=== PATIENT | male | born 1965 | race Caucasian/White ===

== ENCOUNTER 2018-07-11 14:40 | Outpatient (CLI) | payer BC ==
[~2018-07-11] VITALS: Ht 172.7 cm; Wt 90.7 kg
[~2018-07-11 14:40] MED LIST: BENA40TA5 PO; OMEP20TA7 PO; SIMV20TA3 PO; insulin pump
== END 2018-07-11 14:56 ==
LOC: PREOP 14:40
PROVIDERS: ATTEND Surgery
DX: Z01.818 Encounter for other preprocedural examination (principal)

== ENCOUNTER 2018-07-27 10:55 | Day surgery (SDC) | payer BC ==
[~2018-07-27] VITALS: Ht 172.7 cm; Wt 90.7 kg
--- OUTSIDE RECORDS SUMMARY | 2018-07-27 10:58 | XMS REPORT | Clinical Summary ---
Author Author [facility] Organization [facility] Address Unknown Phone Unavailable Care Team Providers Care Production Sampler Name Role Phone Eva Olvera MD PCP Source Comments Some departments are not documenting in the electronic medical record. If you do not see the information that you expected, contact Release of Information in the Health Information Management department at [phone] for further assistance in locating additional records.[facility] Allergies Not on File Medications Not on file Active Problems Not on file Social History Date Tobacco Use Types Packs/Day Years Used Never Assessed Sex Assigned at Date Recorded Not on file Industry Job Start Date Occupation Not on file Not on file Not on file Travel End Travel History Travel Start No recent travel history available. Last Filed Vital Signs Not on file Plan of Treatment Health Maintenance Due Date Last Done Comments HEPATITIS C SCREENING 1963 PHYSICAL (COMPREHENSIVE) 1970 EXAM HIV SCREENING 1978 DTAP/TDAP VACCINES (1 - 1981 Tdap) COLORECTAL CANCER 2013 SCREENING SHINGLES RECOMBINANT 2013 VACCINE (1 of 2) INFLUENZA VACCINE 02/21/2018 Results Not on filefrom Last 3 Months Insurance Payer Benefit Subscriber ID Type Phone Address Plan / Group [employer] [facility] xxxxxxxxxxxx PPO PREF CARE BLUE Advance Directives Patient has advance care planning documents on file. For more information, please contact: [facility] [address] [place] [address]
--- OUTSIDE RECORDS SUMMARY | 2018-07-27 10:59 | XMS REPORT | Continuity of Care Document ---
Author Author [facility] Organization [facility] Address Unknown Phone Unavailable Allergies Active Description Code Type Severity Reaction Onset Reported/Identified Relationship to Patient Clinical Status Yes No Known Drug Allergies [id number] Drug Allergy Unknown N/A 09/23/2015 Medications There is no data. Problems Date Dx Coded Attending Type Code Diagnosis Diagnosed By 10/07/2012 Ot 250.01 DIAB JENNIFER WO COMPL, TYPE I [JUVENILE TYP 10/07/2012 Ot 272.0 PURE HYPERCHOLESTEROLEM 10/07/2012 Ot 282.7 HEMOGLOBINOPATHIES NEC 10/07/2012 Ot 401.9 HYPERTENSION NOS 10/07/2012 Ot 530.81 ESOPHAGEAL REFLUX 10/07/2012 Ot 790.6 ABN BLOOD CHEMISTRY NEC 10/07/2012 Ot V58.67 LONG-TERM ( CURRENT) USE OF INSULIN 10/07/2012 Ot V58.69 OTH MED,LT, CURRENT USE 07/09/2014 Ot 282.7 07/09/2014 Ot 282.7 07/10/2014 ROBERTO CRUZ MD Ot 724.9 08/21/2014 ROBERTO CRUZ MD Ot 724.9 09/23/2015 Ot 282.7 09/23/2015 ANNIA DOBBS MD Ot E10.9 TYPE 1 DIABETES MELLITUS WITHOUT COMPLIC 09/23/2015 ANNIA DOBBS MD Ot Z12.11 ENCOUNTER FOR SCREENING FOR MALIGNANT NE 09/23/2015 ANNIA DOBBS MD Ot Z79.4 NURSING HOME (CURRENT) USE OF INSULIN 01/08/2016 ANNIA DOBBS MD Ot E10.9 TYPE 1 DIABETES MELLITUS WITHOUT COMPLIC 01/08/2016 ANNIA DOBBS MD Ot Z12.11 ENCOUNTER FOR SCREENING FOR MALIGNANT NE 01/08/2016 ANNIA DOBBS MD Ot Z79.4 NURSING HOME (CURRENT) USE OF INSULIN 01/08/2016 Ot 282.7 HEMOGLOBINOPATHIES NEC 01/08/2016 ROBERTO CRUZ MD Ot 724.9 BACK DISORDER NOS 01/08/2016 ANNIA DOBBS MD Ot Z01.818 ENCOUNTER FOR OTHER PREPROCEDURAL EXAMIN 01/28/2016 ANNIA DOBBS MD Ot 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 01/28/2016 ANNIA DOBBS MD Ot M47.892 OTHER SPONDYLOSIS, CERVICAL REGION 01/28/2016 ANNIA DOBBS MD Ot R20.2 PARESTHESIA OF SKIN 07/11/2018 ANNIA DOBBS MD Ot Z01.818 ENCOUNTER FOR OTHER PREPROCEDURAL EXAMIN 07/11/2018 ANNIA DOBBS MD, Ot Z01.818 ENCOUNTER FOR OTHER PREPROCEDURAL EXAMIN 07/27/2018 Ot 282.7 HEMOGLOBINOPATHIES NEC 07/27/2018 NANCY DIAZ, ROBERTO Villa Ot 724.9 BACK DISORDER NOS 07/27/2018 ANNIA DOBBS MD Ot Z01.818 ENCOUNTER FOR OTHER PREPROCEDURAL EXAMIN 07/27/2018 ANNIA DOBBS MD Ot 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 Results There is no data. Encounters ACCT No. Visit Date/Time Discharge Status Pt. Type Provider Facility Loc./Unit Complaint [id number] 07/11/2018 14:40:00 07/11/2018 14:56:00 DIS Outpatient ANNIA DOBBS MD [facility] PREOP EGD [id number] 07/05/2018 08:15:00 07/05/2018 23:59:59 CLS Preadmit ANNIA DOBBS MD [facility] RAD RUQ PAIN N/V [id number] 07/05/2018 08:15:00 07/05/2018 23:59:59 CLS Preadmit ANNIA DOBBS MD [facility] CARD RUQ PAIN N/V [id number] 01/08/2016 15:51:00 01/08/2016 23:59:59 CLS Outpatient ANNIA DOBBS MD [facility] RAD SYRINGOMYELIA W/ LT FACE + UPPER EXT PARESTHESIA [id number] 09/23/2015 08:35:00 09/23/2015 11:00:00 DIS Outpatient ANNIA DOBBS MD [facility] SDC SCREENING [id number] 09/21/2015 09:06:00 09/21/2015 23:59:59 CLS Outpatient ANNIA DOBBS MD [facility] PREOP SCREENING [id number] 07/09/2014 11:53:00 07/09/2014 23:59:59 CLS Outpatient ROBERTO CRUZ MD [facility] RAD SYRINX AT C4 AND 7 [id number] 07/31/2018 08:15:00 PEN Preadmit ANNIA DOBBS MD [facility] RAD RUQ PAIN,NAUSEA,VOMITING [id number] 07/27/2018 10:55:00 ACT Outpatient ANNIA DOBBS MD [facility] ENDO NAUSEA/VOMITING/REFLUX [id number] 11/15/2012 00:00:00 Document Registration [id number] 08/20/2012 14:07:00 Document Registration
--- NOTE | 2018-07-27 11:20 | Conscious Sedation/ASA ---
Conscious Sedation Pre-Proced Time 11:20 ASA Score 2 For ASA 3 and 4: Consider anesthesia and medical clearance. Also, for patients with a history of failed moderate sedation consider anesthesia. Airway Lungs Heart ASA score ASA 1: a normal healthy patient ASA 2: a patient with a mild systemic disease (mid diabetes, controlled hypertension, obesity ASA 3: a patient with a severe systemic disease that limits activity (angina , COPD, prior Myocardial infarction) ASA 4: a patient with an incapacitating disease that is a constant threat to life (CHF, renal failure) ASA 5: a moribund patient not expected to survive 24 hrs. (ruptured aneurysm) ASA 6: a declared brain patient whose organs are being harvested. For emergent operations, add the letter E after the classification Mallampati Classification Grade 2 Sedation Plan Analgesia, Amnesia, Plan communicated to team members, Discussed options with patient/fam, Discussed risks with patient/fam The patient is an appropriate candidate to undergo the planned procedure, sedation, and anesthesia. The patient immediately re-assessed prior to indication. ANNIA DOBBS MD Jul 27, 2018 11:20
--- NOTE | 2018-07-27 11:21 | Progress Note-Pre Operative ---
Pre-Operative Progress Note H&P Reviewed The H&P was reviewed, patient examined and no changes noted. Date Seen by Provider: Jul 27, 2018 Time Seen by Provider: 11:20 Date H&P Reviewed: Jul 27, 2018 Time H&P Reviewed: 11:20 Pre-Operative Diagnosis: persistent nausea, epigastric pain ANNIA DOBBS MD Jul 27, 2018 11:21
[2018-07-27] MEDS ORDERED: NS IV 500 ML 500 ML ONE (11:25)
[2018-07-27] MEDS ORDERED: NS IV 500 ML 500 ML IV PRN (11:26)
[2018-07-27] MEDS ORDERED: ONDANSETRON 4 MG/2 ML (SDV) Z0FRAN IV PRN (11:30)
[2018-07-27] MEDS ORDERED: fentaNYL INJECTION 100 MCG/2 ML AMP IVP ONE (11:30)
[2018-07-27] MEDS ORDERED: ACETAMINOPHEN 325 MG TABLET PO PRN (11:30)
[2018-07-27] MEDS ORDERED: morphine INJ 10 MG/ML 1ML (SYR OR VIAL) IV PRN (11:30)
[2018-07-27] MEDS ORDERED: HYDROcodone/APAP 5 MG/325 MG (LORTAB) TAB PO PRN (11:30)
[2018-07-27] MEDS ORDERED: HURRICAINE EXT TUBE (BENZOCAINE) XX PRN (11:30)
[2018-07-27] MEDS ORDERED: MIDAZOLAM 2 MG/2 ML (VERSED) VIAL IVP ONE (11:30)
[2018-07-27] MEDS ORDERED: fentaNYL INJECTION 100 MCG/2 ML AMP ONE (11:40)
[2018-07-27] MEDS ORDERED: LIDOCAINE JELLY 2% 6 ML SYRINGE ONE (11:40)
[2018-07-27] MEDS ORDERED: HURRICAINE EXT TUBE (BENZOCAINE) ONE (11:40)
[2018-07-27] MEDS ORDERED: MIDAZOLAM 2 MG/2 ML (VERSED) VIAL ONE ×4 (11:40)
[2018-07-27 12:07] VITALS: BP 141/70
--- NOTE | 2018-07-27 12:23 | Progress Note-Post Operative ---
Post-Operative Progess Note Surgeon (s)/Prestressed Concrete Laborer (s) Surgeon ANNIA DOBBS MD Prestressed Concrete Laborer: none Pre-Operative Diagnosis persistent nausea, epigastric pain Post-Operative Diagnosis reflux esophagitis(stage 2), small HH(1cm), moderate gastritis. Procedure & Operative Findings Date of Procedure 07/27/18 Procedure Performed/Findings EGD with bx. Anesthesia Type CS Estimated Blood Loss Estimated blood loss (mL): minimal Specimens/Packing Specimens Removed GE jxn, antrum ANNIA DOBBS MD Jul 27, 2018 12:23
--- NOTE | 2018-07-27 12:25 | Discharge Inst-Surgical ---
D/C Lap Instructions-RINKU Will call for follow up. Activity as tolerated High Fiber Diet 25g or more per day Avoid Alcohol, Caffeine, Spicy [place] and Acid foods. Drink 64 fluid oz or more of fluids per day. Symptoms to Report: Fever over 101 degree F, Nausea/Vomiting If any problems/questions: Contact your physician or go to Emergency Room ANNIA DOBBS MD Jul 27, 2018 12:25
[2018-07-27 12:30] VITALS: BP 136/76
[2018-07-27] MEDS ORDERED: LIDOCAINE JELLY 2% 6 ML SYRINGE TOP ONE (12:45)
[2018-07-27 13:00] VITALS: BP 133/67
[2018-07-27 13:20] VITALS: BP 133/67
--- NOTE | 2018-07-28 00:43 | OPERATIVE REPORT ---
DATE OF SERVICE: 07/27/2018 ATTENDING PRIMARY CARE PHYSICIAN: eGrry Rao M.D. at [facility] as well as Dr. Vargas Bartholomew. PREOPERATIVE DIAGNOSIS: Persistent nausea, epigastric pain. POSTOPERATIVE DIAGNOSES: Reflux esophagitis stage II, small hiatal hernia 1 cm in size, moderate gastritis. PROCEDURE: EGD with biopsy. SURGEON: Annia Dobbs M.D. ANESTHESIA: Conscious sedation. ESTIMATED BLOOD LOSS: Minimal. FINDINGS: Reflux esophagitis stage II, no ulcers or strictures. Small hiatal hernia approximately 1 cm in size, moderate gastritis. There was no retained food substance in the stomach to suggest diabetic gastroparesis. No formal ulcerations, polyps or any neoplasms. Pylorus and duodenum appeared normal with no distal obstructions. DISPOSITION: The patient tolerated the procedure well. INDICATIONS: The patient is a 52-year-old male with persistent nausea as well as epigastric pain. It occurs in the morning, for the past several months he would have nausea and then vomited after eating a meal. He did not report any hematemesis, no coffee ground emesis. Upon further questioning, he does report a history of peptic ulcer disease as well as gastroesophageal reflux disease and has been on omeprazole 20 mg daily. He does report some foods as well as alcohol make his symptoms worse. He was also evaluated for a gallbladder etiology approximately 10 years ago with an ultrasound which did not show any abnormalities; however, he does have pain in the epigastric region with some radiation towards the back as well as his intermittent episodes of nausea, vomiting after a meal and is also scheduled for an ultrasound of the gallbladder as well as a HIDA scan. DESCRIPTION OF PROCEDURE: The patient was brought to the endoscopy suite, laid in the left lateral decubitus position. After adequate IV pain and sedating medications and conscious sedation anesthesia, the mouthpiece was applied. The endoscope was placed in the mouth, visualizing the pharynx and hypopharyngeal region. Vocal cords, epiglottis and vallecula identified and appeared to be normal. The endoscope was then gently intubated at the esophageal opening and the esophagus insufflated. The endoscope was then advanced to the first, second and third portion of esophagus at the level of the GE junction, a reflux esophagitis grade II identified. There were no ulcers or strictures identified in this region. A biopsy was taken using forceps with visualization of good hemostasis. The endoscope was then easily advanced to the stomach and endoscope retroflexed, visualizing a small hiatal hernia, less than 1 cm in size. There was a moderate severity gastritis. There were no formal polyps, ulcerations or any neoplasms identified. A biopsy was taken of the antrum with forceps to rule out H. pylori. There was no retained food substance within the stomach to indicate any diabetic gastroparesis or any type of gastroparesis. The endoscope was then advanced to the pylorus and the first and second portion of duodenum, which appeared normal. No distal obstructions. The endoscope was then slowly withdrawn while taking a second look and suctioning of residual air with no additional findings. The patient tolerated the procedure well. We will recommend a conservative management with necessary lifestyle and diet accommodation including tight glycemic control as well as avoidance of caffeinated beverages, spicy, greasy and acidic foods as well as small and more frequent meals and avoidance of eating at night. He was recently started on Protonix and states that this has helped some and we will have him continue with Protonix for now. We will also continue with workup for gallbladder etiology as mentioned previously. Job ID: [id number] DocumentID: [id number] Dictated Date: 07/27/2018 12:12:04 Observer [employer] Date: 07/28/2018 00:42:23 Dictated By: ANNIA DOBBS MD
== END 2018-07-27 13:20 | disposition home or self-care (01) ==
LOC: ENDO 10:55
PROVIDERS: ATTEND Surgery
DX: K21.0 Gastro-esophageal reflux disease with esophagitis (principal); K44.9 Diaphragmatic hernia without obstruction or gangrene; K29.70 Gastritis, unspecified, without bleeding; E10.9 Type 1 diabetes mellitus without complications; I10 Essential (primary) hypertension; E78.00 Pure hypercholesterolemia, unspecified; Z79.4 Long term (current) use of insulin; Z79.899 Other long term (current) drug therapy
CPT/HCPCS: 82962

== ENCOUNTER → 2018-07-31 | Outpatient (CLI) | payer BC ==
--- NOTE | 2018-07-31 10:43 | Diagnostic Imaging Report ---
PROCEDURE: US Gallbladder. TECHNIQUE: Multiple real-time grayscale images were obtained over the right upper quadrant in various projections. INDICATION: Abdominal pain. The previous gallbladder ultrasound exam of 09/05/2008 noted cholelithiasis but failed to show any sign of acute cholecystitis. On this study there do appear to be 2 echogenic densities within the gallbladder. I suspect that these are calculi. The gallbladder wall is not thickened. There is no pericholecystic fluid collection identified. The liver is not enlarged but the liver does seem more echogenic than usual. This appearance does suggest fatty metamorphosis. This finding was also evident on the prior exam. The right kidney is not enlarged. There do appear to be cysts associated with the right kidney. These measure 2.4 x 1.9 cm and 2.2 x 2.1 cm. These cysts were not clearly evident on the prior study. There is no solid renal mass identified. There is no sign of obstruction. The pancreas was obscured. IMPRESSION: 1. There is cholelithiasis but there is still no evidence for acute cholecystitis. If clinical concern regarding an acute abnormality of the gallbladder persists, then a nuclear medicine hepatobiliary scan would be recommended for further study. 2. There do appear to be 2 newly developed cysts associated with the right kidney. These cysts have a generally benign appearance. 3. The appearance of the liver does suggest fatty metamorphosis. Dictated by: Dictated on workstation # [id number]
== END ==
LOC: RAD 08:12
PROVIDERS: ATTEND Surgery
DX: K80.20 Calculus of gallbladder without cholecystitis without obstruction (principal)
CPT/HCPCS: 76705

== ENCOUNTER 2018-08-10 14:10 | Outpatient (CLI) | payer BC ==
[~2018-08-10] VITALS: Ht 172.7 cm; Wt 86.2 kg
== END 2018-08-10 14:37 | disposition home or self-care (01) ==
LOC: PREOP 14:10
PROVIDERS: ATTEND Surgery
DX: Z01.818 Encounter for other preprocedural examination (principal)

== ENCOUNTER 2018-12-26 05:56 | Outpatient (CLI) | payer BC ==
[~2018-12-26] VITALS: Ht 172.7 cm; Wt 84.8 kg
[~2018-12-26 05:56] MED LIST changes: +HYDR-3816 PO
== END 2018-12-26 16:29 | disposition home or self-care (01) ==
LOC: PREOP 05:56
PROVIDERS: ATTEND Specialist
DX: Z01.818 Encounter for other preprocedural examination (principal)

== ENCOUNTER 2018-12-28 09:33 | Day surgery (SDC) | payer BC ==
[~2018-12-28] VITALS: Ht 172.7 cm; Wt 84.8 kg
[2018-12-28] MEDS ORDERED: POVIDONE (BETADINE) OPHTH SOLN 5% 30 ML OP ONE (09:45)
[2018-12-28] MEDS ORDERED: LIDOCAINE PF 1% 2 ML AMP IR PRN (09:45)
[2018-12-28] MEDS ORDERED: MOXIFLOXACIN OPHTH SOLN 5 MG/ML 0.3 ML SYRINGE OP ONE (09:45)
[2018-12-28] MEDS ORDERED: TIMOLOL MALEATE 0.5% 5 ML (TIMOPTIC) BTL OU PRN (09:45)
[2018-12-28] MEDS: TETRACAINE 0.5% OPHTH SOLN 4 ML BTL (SINGLE DOSE ONLY) OU PRN ×4 (09:51→10:12)
[2018-12-28 09:56] VITALS: BP 134/70
[2018-12-28] MEDS: PHENYLEPHRINE 10% OPHTH (NEO-SYN) 5 ML BTL OU SCH ×3 (10:01→10:12)
[2018-12-28] MEDS: CYCLOPENTOLATE 1% (CYCLOGYL) 2 ML DROPS OP SCH ×3 (10:01→10:12)
--- NOTE | 2018-12-28 10:11 | Ophthalmologist Pre-Op Note ---
Pre-Operative Progress Note H&P Reviewed The H&P was reviewed, patient examined and no changes noted. Date H&P Reviewed: Dec 28, 2018 Time H&P Reviewed: 10:11 Pre-Op Dx Cataract, Left Eye PATRICK DAMON MD Dec 28, 2018 10:11
[2018-12-28] MEDS ORDERED: MIDAZOLAM 2 MG/2 ML (VERSED) VIAL ONE (10:27)
--- NOTE | 2018-12-28 10:47 | Ophthalmology Operative Report ---
Cataract removal/placement IOL PREOPERATIVE DIAGNOSIS: Cataract Left Eye POSTOPERATIVE DIAGNOSIS: Cataract Left Eye PROCEDURE: Cataract removal and placement of posterior chamber implant, left eye SURGEON: Shree Damon ANESTHESIA: Topical with sedation COMPLICATIONS: None ESTIMATED BLOOD LOSS: Minimal DESCRIPTION OF PROCEDURE: After proper informed consent was obtained, the patient, a 53 male, was taken to the Operating Room and the left eye was anesthetized with tetracaine. The left eye was then prepped and draped in the usual manner. A wire lid speculum was placed. A paracentesis was made at the left hand position. Preservative free lidocaine was injected into the anterior chamber followed by viscoelastic. A clear corneal incision was made in the temporal position. A capsulorrhexis was preformed and the central nuclear and cortical material were removed. The posterior capsule was polished and an Stewart 22.5 [id number] was placed into the capsular bag. The residual viscoelastic was aspirated and balanced saline solution was injected into the anterior chamber. Moxifloxacin was injected into the anterior chamber. The wound was checked and found to be water tight. The patient tolerated the procedure well without complications. SHREE DAMON MD Dec 28, 2018 10:47
--- NOTE | 2018-12-28 10:48 | Anesthesia-General Post-Op ---
MAC Patient Condition Mental Status/LOC: Same as Preop Cardiovascular: Satisfactory Nausea/Vomiting: Absent Respiratory: Satisfactory Pain: Controlled Complications: Absent Post Op Complications Complications None Follow Up Care/Instructions Patient Instructions None needed. Anesthesiology Discharge Order Discharge Order Patient is doing well, no complaints, stable vital signs, no apparent adverse anesthesia problems. No complications reported per nursing. SHAKIRA BRUNO CRNA Dec 28, 2018 10:48
[2018-12-28 11:00] VITALS: BP 147/73
[2018-12-28] MEDS ORDERED: acetaZOLAMIDE ER 500 MG CAP (DIAMOX SEQUELS) PO ONE (11:00)
== END 2018-12-28 11:00 | disposition home or self-care (01) ==
LOC: SDC 09:33
PROVIDERS: ATTEND Specialist
DX: H25.12 Age-related nuclear cataract, left eye (principal); E11.36 Type 2 diabetes mellitus with diabetic cataract; I10 Essential (primary) hypertension; E78.00 Pure hypercholesterolemia, unspecified; K21.9 Gastro-esophageal reflux disease without esophagitis; Z79.4 Long term (current) use of insulin; Z79.899 Other long term (current) drug therapy

== ENCOUNTER 2020-06-22 05:42 | Outpatient (RCR) | payer BC ==
[~2020-06-22] VITALS: Ht 172 cm; Wt 83.1 kg
[~2020-06-22 05:42] MED LIST changes: +HYDR-34 PO; -HYDR-3816 PO; +SIMV20TA26 PO; -SIMV20TA3 PO
== END 2020-06-23 12:45 | disposition home or self-care (01) ==
LOC: PREOP 05:42
PROVIDERS: ATTEND Specialist
DX: Z01.818 Encounter for other preprocedural examination (principal)

== ENCOUNTER 2020-06-26 07:59 | Day surgery (SDC) | payer BC ==
[~2020-06-26] VITALS: Ht 172 cm; Wt 83.1 kg
[2020-06-26] MEDS: TETRACAINE 0.5% OPHTH SOLN 4 ML BTL (SINGLE DOSE ONLY) OU PRN ×2 (08:23→08:36)
[2020-06-26] MEDS: PHENYLEPHRINE 10% OPHTH (NEO-SYN) 5 ML BTL OU PRN ×2 (08:23→08:36)
[2020-06-26] MEDS: TROPICAMIDE 1% OPH SOLN (MYDRIACYL) 15 ML BTL OU PRN ×2 (08:23→08:36)
--- NOTE | 2020-06-26 08:35 | Ophthalmologist Pre-Op Note ---
Pre-Operative Progress Note H&P Reviewed The H&P was reviewed, patient examined and no changes noted. Date H&P Reviewed: Jun 26, 2020 Time H&P Reviewed: 08:35 Pre-Op Dx Secondary Cataract, Right Eye PATRICK DAMON MD Jun 26, 2020 08:35
--- NOTE | 2020-06-26 09:21 | Ophthalmology Operative Report ---
YAG Capsulotomy PREOPERATIVE DIAGNOSIS: Secondary Cataract Left Eye POSTOPERATIVE DIAGNOSIS: Secondary Cataract Left Eye PROCEDURE: YAG Capsulotomy, left eye SURGEON: Shree Damon ANESTHESIA: Topical anesthesia COMPLICATIONS: None ESTIMATED BLOOD LOSS: Minimal DESCRIPTION OF PROCEDURE: After proper informed consent was obtained, the patient's, a 54 male left eye received one drop of Tropicamide and one drop of Tetracaine. The patient was then placed at the YAG laser and using a power of [ 3.7] millijoules and [16 ] bursts were used to fashion a central capsulotomy. The patient tolerated the procedure well without complications. SHREE DAMON MD Jun 26, 2020 09:21
== END 2020-06-26 09:20 | disposition home or self-care (01) ==
LOC: SDC 07:59
PROVIDERS: ATTEND Specialist
DX: H26.492 Other secondary cataract, left eye (principal); E11.36 Type 2 diabetes mellitus with diabetic cataract; Z80.0 Family history of malignant neoplasm of digestive organs

== ENCOUNTER 2020-07-15 17:25 | Inpatient (IN) | payer BC ==
[~2020-07-15] VITALS: Ht 172.7 cm; Wt 88.6 kg
--- NOTE | 2020-07-15 17:57 | ED Respiratory ---
General Chief Complaint: Respiratory Problems Stated Complaint: COVID + DIFFICULTY BREATHING Source: patient Exam Limitations: no limitations History of Present Illness Date Seen by Provider: Jul 15, 2020 Time Seen by Provider: 17:54 Initial Comments To ER with reports of shortness of breath and hypoxia. 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 He is on day 9 of illness. Diagnosed positive with Covid on Monday07/10/20. He is an insulin-dependent diabetic Timing/Duration: constant Severity: moderate Associated Symptoms: cough Allergies and Home Medications Allergies Coded Allergies: No Known Drug Allergies (Verified , 09/23/15) Home Medications Benazepril HCl 40 Mg Tab, 40 MG PO DAILY, (Reported) Simvastatin 20 Mg Tablet, 20 MG PO DAILY, (Reported) [insulin pump] , 1 DAILY, (Reported) Patient Home Medication List Home Medication List Reviewed: Yes Review of Systems Review of Systems Constitutional: see HPI EENTM: see HPI Respiratory: see HPI, cough, dyspnea on exertion, short of breath Cardiovascular: no symptoms reported, see HPI; No chest pain Genitourinary: no symptoms reported Musculoskeletal: no symptoms reported Skin: no symptoms reported Psychiatric/Neurological: No Symptoms Reported Hematologic/Lymphatic: No Symptoms Reported Immunological/Allergic: no symptoms reported Past Mxcobyf-Sjcbba-Jldyjo Hx Patient Social History 2nd Hand Smoke Exposure: No Recent Hopitalizations: No Seasonal Allergies Seasonal Allergies: No Past Medical History Surgeries: Yes (SHOULDER X2, WRIST, HAND, ELBOW, FINGER) Respiratory: No Cardiac: Yes Hypertension Neurological: No Gastrointestinal: Yes (nausea/vomiting) Gastroesophageal Reflux Musculoskeletal: No Endocrine: Yes Diabetes, Insulin dep Cancer: No Psychosocial: No Integumentary: No Blood Disorders: No Physical Exam Vital Signs - First Documented 07/15/20 17:35 Temp 37.9 Pulse 98 Resp 22 B/P (MAP) 194/92 (126) Pulse Ox 88 O2 Delivery Non Rebreather O2 Flow Rate 12.00 FiO2 70 Capillary Refill : Height: 5'8.00" Weight: 187lbs. 0.0oz. 84.295068np; 28.5 BMI Method: General Appearance: WD/WN, no apparent distress, other (On arrival to ER after walking in from the parking lot his oxygen saturation was 66% on room air though he was remarkably not in respiratory distress and appeared quite tolerant of it. With the application of a nonrebreather at 15 L his oxygen saturation increased to 93%. We then placed him on BiPAP at 12/5 and 70% FiO2. Oxygen saturation jeremías to 100%. Mentation is normal alert and oriented) Eyes: Bilateral Eye Normal Inspection, Bilateral Eye PERRL, Bilateral Eye EOMI Neck: non-tender, full range of motion Respiratory: no respiratory distress, no accessory muscle use Cardiovascular: regular rate, rhythm, no murmur Gastrointestinal: normal bowel sounds, non tender, soft Extremities: normal range of motion, non-tender Neurologic/Psychiatric: alert, normal mood/affect, oriented x 3 Skin: normal color, warm/dry Focused Exam Lactate Level 07/15/20 17:45: Lactic Acid Level 2.46*H Lactic Acid Level Laboratory Tests Test 07/15/20 17:45 Lactic Acid Level 2.46 MMOL/L (0.50-2.00) *H Progress/Results/Core Measures Suspected Sepsis SIRS Temperature: Pulse: Respiratory Rate: Laboratory Tests 07/15/20 17:45: White Blood Count 13.7H Blood Pressure / Mean: 07/15/20 17:45: Lactic Acid Level 2.46*H Laboratory Tests 07/15/20 17:45: Creatinine 0.79, INR Comment 1.1, Platelet Count 311, Total Bilirubin 4.5H Results/Orders Lab Results Laboratory Tests Test 07/15/20 17:45 07/15/20 18:54 Range/Units White Blood Count 13.7 H 4.3-11.0 10^3/uL Red Blood Count 5.51 4.30-5.52 10^6/uL Hemoglobin 15.8 13.3-17.7 g/dL Hematocrit 47 40-54 % Mean Corpuscular Volume 85 80-99 fL Mean Corpuscular Hemoglobin 29 25-34 pg Mean Corpuscular Hemoglobin Concent 34 32-36 g/dL Red Cell Distribution Width 12.8 10.0-14.5 % Platelet Count 311 130-400 10^3/uL Mean Platelet Volume 9.8 9.0-12.2 fL Immature Granulocyte % (Auto) 1 % Neutrophils (%) (Auto) 93 H 42-75 % Lymphocytes (%) (Auto) 4 L 12-44 % Monocytes (%) (Auto) 2 0-12 % Eosinophils (%) (Auto) 0 0-10 % Basophils (%) (Auto) 0 0-10 % Neutrophils # (Auto) 12.7 H 1.8-7.8 10^3/uL Lymphocytes # (Auto) 0.5 L 1.0-4.0 10^3/uL Monocytes # (Auto) 0.3 0.0-1.0 10^3/uL Eosinophils # (Auto) 0.0 0.0-0.3 10^3/uL Basophils # (Auto) 0.0 0.0-0.1 10^3/uL Immature Granulocyte # (Auto) 0.2 H 0.0-0.1 10^3/uL Neutrophils % (Manual) 92 % Lymphocytes % (Manual) 3 % Monocytes % (Manual) 3 % Eosinophils % (Manual) 0 % Basophils % (Manual) 0 % Band Neutrophils 0 % Reactive Lymphocytes 2 % Toxic Granulation 1+ Erythrocyte Sedimentation Rate 12 0-30 MM/HR Prothrombin Time 14.4 12.2-14.7 SEC INR Comment 1.1 0.8-1.4 Activated Partial Thromboplast Time 29 24-35 SEC D-Dimer 0.93 H 0.00-0.49 UG/ML Sodium Level 138 135-145 MMOL/L Potassium Level 4.0 3.6-5.0 MMOL/L Chloride Level 99 98-107 MMOL/L Carbon Dioxide Level 23 21-32 MMOL/L Anion Gap 16 H 5-14 MMOL/L Blood Urea Nitrogen 20 H 7-18 MG/DL Creatinine 0.79 0.60-1.30 MG/DL Estimat Glomerular Filtration Rate > 60 BUN/Creatinine Ratio 25 Glucose Level 258 H 70-105 MG/DL Lactic Acid Level 2.46 *H 0.50-2.00 MMOL/L Calcium Level 10.6 H 8.5-10.1 MG/DL Corrected Calcium 10.8 H 8.5-10.1 MG/DL Magnesium Level 2.3 1.6-2.4 MG/DL Total Bilirubin 4.5 H 0.1-1.0 MG/DL Aspartate Amino Transf (AST/SGOT) 88 H 5-34 U/L Alanine Aminotransferase (ALT/SGPT) 167 H 0-55 U/L Alkaline Phosphatase 444 H 40-136 U/L Lactate Dehydrogenase 537 H 125-220 U/L Total Creatine Kinase 147 30-200 U/L Creatine Kinase MB 3.4 <6.6 NG/ML Myoglobin 226.1 H 10.0-92.0 NG/ML Troponin I 0.029 H <0.028 NG/ML C-Reactive Protein High Sensitivity 42.09 H 0.00-0.50 MG/DL B-Type Natriuretic Peptide 94.2 <100.0 PG/ML Total Protein 8.3 H 6.4-8.2 GM/DL Albumin 3.7 3.2-4.5 GM/DL Procalcitonin 1.18 H <0.10 NG/ML Blood Gas Puncture Site RR Blood Gas Patient Temperature 99.2 Arterial Blood pH 7.44 H 7.37-7.43 Arterial Blood Partial Pressure CO2 38 35-45 MMHG Arterial Blood Partial Pressure O2 177 H 79-93 MMHG Arterial Blood HCO3 25 23-27 MMOL/L Arterial Blood Total CO2 26.1 21.0-31.0 MMOL/L Arterial Blood Oxygen Saturation 100 94-100 % Arterial Blood Base Excess 1.2 -2.5-2.5 MMOL/L Arash Test YES-POS Blood Gas Ventilator Setting NO Blood Gas Inspired Oxygen 70% Medications Given in ED Current Medications Medications Dose Ordered Sig/Lennox Route Start Time Stop Time Status Last Admin Dose Admin Dexamethasone Sodium Phosphate 6 mg ONCE ONCE IV 07/15/20 17:45 07/15/20 17:46 DC 07/15/20 17:57 6 MG Vital Signs/I&O 07/15/20 07/15/20 17:35 17:35 Temp 37.9 Pulse 98 Resp 22 B/P (MAP) 194/92 (126) Pulse Ox 88 99 O2 Delivery Non Rebreather NIV Bilevel O2 Flow Rate 12.00 FiO2 70 Capillary Refill : Departure Impression Primary Impression: COVID-19 Additional Impressions: Hypoxia Hypertension Insulin dependent diabetes mellitus Disposition: ADMITTED INPATIENT Condition: Stable Admissions Decision to Admit Reason: Admit from ER (General) Decision to Admit/Date: Jul 15, 2020 Time/Decision to Admit Time: 17:57 Departure-Patient Inst. Referrals: CAS RAMIREZ MD (PCP/Family) Primary Care Physician JEROME ALAS APRN Jul 15, 2020 17:57
[2020-07-15 18:03] LABS: BASOPHILS % (AUTO) 0 % (0-10); EOSINOPHILS % (AUTO) 0 % (0-10); HEMATOCRIT 47 % (40-54); HEMOGLOBIN 15.8 g/dL (13.3-17.7); LYMPHOCYTES # (AUTO) 0.5 10^3/uL (1.0-4.0); LYMPHOCYTES % (AUTO) 4 % (12-44); MEAN CORPUSCULAR HEMOGLOBIN 29 pg (25-34); MEAN CORPUSCULAR HGB CONC 34 g/dL (32-36); MEAN CORPUSCULAR VOLUME 85 fL (80-99); MEAN PLATELET VOLUME 9.8 fL (9.0-12.2); MONOCYTES # (AUTO) 0.3 10^3/uL (0.0-1.0); MONOCYTES % (AUTO) 2 % (0-12); NEUTROPHILS # (AUTO) 12.7 10^3/uL (1.8-7.8); NEUTROPHILS % (AUTO) 93 % (42-75); PLATELET COUNT 311 10^3/uL (130-400); WHITE BLOOD COUNT 13.7 10^3/uL (4.3-11.0)
[2020-07-15 18:15] LABS: ALBUMIN 3.7 GM/DL (3.2-4.5); CHLORIDE 99 MMOL/L (98-107); SODIUM 138 MMOL/L (135-145)
[2020-07-15 18:16] LABS: CALCIUM 10.6 MG/DL (8.5-10.1)
[2020-07-15 18:17] LABS: GLUCOSE 258 MG/DL (70-105); TOTAL PROTEIN 8.3 GM/DL (6.4-8.2)
[2020-07-15 18:18] LABS: CARBON DIOXIDE 23 MMOL/L (21-32); FIBRIN DEGRADATION PRODUCTS 0.93 UG/ML (0.00-0.49); INR 1.1 (0.8-1.4); PROTHROMBIN TIME PATIENT 14.4 SEC (12.2-14.7)
[2020-07-15 18:19] LABS: BAND NEUTROPHILS 0 %; BASOPHILS % (MANUAL) 0 %; BILIRUBIN,TOTAL 4.5 MG/DL (0.1-1.0); EOSINOPHILS % (MANUAL) 0 %; LYMPHOCYTES % (MANUAL) 3 %; MONOCYTES % (MANUAL) 3 %; NEUTROPHILS % (MANUAL) 92 %; REACTIVE LYMPHOCYTES 2 %; TOXIC GRANULATION/VACUOLAZATIO 1+
[2020-07-15 18:21] LABS: ALKALINE PHOSPHATASE 444 U/L (40-136); CREATININE SERUM 0.79 MG/DL (0.60-1.30); GFR ESTIMATED > 60
[2020-07-15 18:22] LABS: BUN/CREATININE RATIO 25
[2020-07-15 18:24] LABS: ALANINE AMINOTRANSFERASE 167 U/L (0-55); MAGNESIUM 2.3 MG/DL (1.6-2.4)
[2020-07-15 18:25] LABS: CREATINE KINASE 147 U/L (30-200)
[2020-07-15 18:32] LABS: CREATINE KINASE MB 3.4 NG/ML (<6.6)
[2020-07-15 18:41] LABS: ERYTHROCYTE SEDIMENTATION RATE 12 MM/HR (0-30)
--- NOTE | 2020-07-15 18:56 | NUR ---
bipap settings: IPAP 12 EPAP rate 15 o2: 70% I-Time: 1.35 rise: 2
[2020-07-15 19:02] LABS: ABG BASE EXCESS 1.2 MMOL/L (-2.5-2.5); ABG OXYGEN SATURATION 100 % (94-100); ABG PCO2 38 MMHG (35-45); ABG PH 7.44 (7.37-7.43); ABG PO2 177 MMHG (79-93); ABG TCO2 26.1 MMOL/L (21.0-31.0)
[2020-07-15 19:08] LABS: ALLENS TEST YES-POS; INSPIRED O2 70%; PATIENT TEMP 99.2; VENTILATOR NO
--- NOTE | 2020-07-15 19:11 | NUR ---
Called Tamar Shen () at this time with an update. ([phone]
--- NOTE | 2020-07-15 19:13 | Diagnostic Imaging Report ---
INDICATION: COVID pneumonia. Comparison is made with prior examination from 06/30/2008. FINDINGS: There is diffuse bilateral airspace disease. The heart size is normal. There is no pleural effusion or pneumothorax. The mediastinum is unremarkable. IMPRESSION: Diffuse bilateral groundglass infiltrates compatible with COVID pneumonia. Dictated by: Dictated on workstation # [id number]
--- NOTE | 2020-07-15 19:35 | NUR ---
bipap settings: IPAP 12 EPAP 5 rate 15 o2: 70% I-Time: 1.35 rise: 2
--- NOTE | 2020-07-15 20:15 | NUR ---
Care was transferred at this time.
[2020-07-15] MEDS ORDERED: IBUPROFEN 600 MG (MOTRIN) TAB PO PRN (21:15)
--- NOTE | 2020-07-15 21:24 | NUR ---
THIS RN NOTIFIED DR. CRUZ OF PATIENT'S C/O HEADACHE - RECEIVED NEW ORDER AT THIS TIME. ALSO INFORMED DR. CRUZ OF PATIENT'S SBP WHICH IS 160'S - ORDER RECEIVED TO RESTART HOME MEDS IN THE MORNING AND TO GIVE SIMVASTATIN 20MG NOW.
[2020-07-15] MEDS ORDERED: SIMvastatin 20 MG (ZOCOR) TAB ONE (21:26)
[2020-07-15] MEDS ORDERED: cefTRIAXone 1,000 MG/SWFI 10 ML IV PUSH IV SCH ×2 (21:30)
[2020-07-15] MEDS ORDERED: SIMvastatin 20 MG (ZOCOR) TAB PO ONE (21:30)
[2020-07-15] MEDS ORDERED: AZITHROMYCIN 500 MG/NS 250 ML IVPB IV SCH ×2 (21:30)
[2020-07-15] MEDS: IBUPROFEN 600 MG (MOTRIN) TAB PO PRN (21:41)
--- NOTE | 2020-07-15 22:16 | NUR ---
THIS RN NOTIFIED E-ICU AT THIS TIME OF PATIENT'S C/O NAUSEA. IS CURRENTLY ON THE PHONE AND UNAVAILABLE, NURSE TOOK MESSAGE AND WILL GIVE TO WHEN HE IS AVAILABLE.
[2020-07-15] MEDS ORDERED: ONDANSETRON 4 MG/2 ML (SDV) Z0FRAN ONE (22:22)
[2020-07-15] MEDS: ONDANSETRON 4 MG/2 ML (SDV) Z0FRAN IVP PRN (22:29)
[2020-07-15 23:48] VITALS: BP 167/78
[2020-07-16] MEDS: IBUPROFEN 600 MG (MOTRIN) TAB PO PRN (02:56)
[2020-07-16 04:17] LABS: CLARITY,URINE CLEAR; COLOR,URINE AMBER; GLUCOSE, URINE (UA) 3+ (NEGATIVE); KETONES,URINE TRACE (NEGATIVE); LEUKOCYTE ESTERASE ,URINE NEGATIVE (NEGATIVE); NITRITE,URINE NEGATIVE (NEGATIVE); PH,URINE 5.5 (5-9); PROTEIN,URINE 1+ (NEGATIVE)
[2020-07-16 04:20] LABS: BASOPHILS % (AUTO) 0 % (0-10); EOSINOPHILS % (AUTO) 0 % (0-10); HEMATOCRIT 44 % (40-54); HEMOGLOBIN 14.7 g/dL (13.3-17.7); LYMPHOCYTES # (AUTO) 0.6 10^3/uL (1.0-4.0); LYMPHOCYTES % (AUTO) 5 % (12-44); MEAN CORPUSCULAR HEMOGLOBIN 29 pg (25-34); MEAN CORPUSCULAR HGB CONC 34 g/dL (32-36); MEAN CORPUSCULAR VOLUME 85 fL (80-99); MEAN PLATELET VOLUME 10.2 fL (9.0-12.2); MONOCYTES # (AUTO) 0.2 10^3/uL (0.0-1.0); MONOCYTES % (AUTO) 2 % (0-12); NEUTROPHILS # (AUTO) 12.5 10^3/uL (1.8-7.8); NEUTROPHILS % (AUTO) 93 % (42-75); PLATELET COUNT 278 10^3/uL (130-400); WHITE BLOOD COUNT 13.5 10^3/uL (4.3-11.0)
[2020-07-16 04:33] LABS: BACTERIA,URINE TRACE /HPF; BILIRUBIN,URINE 3+ (NEGATIVE); GRANULAR CASTS,URINE RARE /LPF; WBC,URINE 0-2 /HPF
[2020-07-16 04:46] LABS: ALANINE AMINOTRANSFERASE 130 U/L (0-55); ALBUMIN 3.2 GM/DL (3.2-4.5); ALKALINE PHOSPHATASE 392 U/L (40-136); BILIRUBIN,TOTAL 2.9 MG/DL (0.1-1.0); BUN/CREATININE RATIO 32; CALCIUM 9.7 MG/DL (8.5-10.1); CARBON DIOXIDE 25 MMOL/L (21-32); CHLORIDE 100 MMOL/L (98-107); CREATININE SERUM 0.71 MG/DL (0.60-1.30); GFR ESTIMATED > 60; GLUCOSE 255 MG/DL (70-105); MAGNESIUM 2.3 MG/DL (1.6-2.4); PHOSPHORUS 3.2 MG/DL (2.3-4.7); POTASSIUM 4.7 MMOL/L (3.6-5.0); SODIUM 137 MMOL/L (135-145); TOTAL PROTEIN 7.7 GM/DL (6.4-8.2)
[2020-07-16] MEDS ORDERED: REMDESIVIR 200 MG/NS 250 ML IVPB IV NR ×2 (07:06)
--- NOTE | 2020-07-16 07:44 | Diagnostic Imaging Report ---
INDICATION: Respiratory failure Portable chest 2:14 AM Comparison made with the previous day There are diffuse pulmonary infiltrates in the lungs. These are not significantly changed compared to the previous day. There is no effusion or pneumothorax. IMPRESSION: Stable chest with severe diffuse pulmonary infiltrates. Dictated by: Dictated on workstation # [id number]
[2020-07-16] MEDS ORDERED: cefTRIAXone FOR IV USE 2,000 MG in WATER (STERILE) FOR INJECTION 20 ML IV SCH (08:15)
[2020-07-16] MEDS: ENOXAPARIN 40 MG/0.4 ML (LOVENOX) SYR SC SCH (08:54)
[2020-07-16] MEDS: lisINopril 20 MG (PRINIVIL) TABLET PO SCH (08:55)
[2020-07-16] MEDS: dexAMETHasone 6 MG TAB (DECADRON) PO SCH (08:55)
[2020-07-16] MEDS ORDERED: SIMvastatin 20 MG (ZOCOR) TAB PO SCH (09:00)
--- NOTE | 2020-07-16 09:12 | Diagnostic Imaging Report ---
PROCEDURE: US Hepatic (Liver). TECHNIQUE: Multiple real-time grayscale images were obtained over the right upper quadrant in various projections. INDICATION: Elevated liver function tests. Liver is normal in size at 17.3 cm. No discrete liver mass is detected. Portal vein is patent and shows normal direction of flow. Gallbladder surgically absent. No definite biliary duct dilatation is seen. Pancreas, aorta and IVC are secured by overlying bowel gas. Right kidney is without calculi or hydronephrosis. There is no ascites. IMPRESSION: Limited study due to overlying bowel gas. Liver is unremarkable. No mass is detected. Dictated by: Dictated on workstation # [id number]
[2020-07-16] MEDS: RT-ALBUTEROL INHALER HFA (VENTOLIN HFA) 18 GM IH SCH ×3 (11:05→18:37)
[2020-07-16] MEDS: ONDANSETRON 4 MG/2 ML (SDV) Z0FRAN IVP PRN (12:07)
[2020-07-16] MEDS ORDERED: IOHEXOL 350 MG/ML 100 ML (OMNIPAQUE 350) VIAL IV ONE (12:15)
[2020-07-16] MEDS ORDERED: PIPERACILLIN/TAZO 4.5 GM/NS 100 ML IV NR ×2 (12:15)
[2020-07-16] MEDS ORDERED: NS 100 ML (IVPB) BAG IV ONE (12:15)
[2020-07-16] MEDS ORDERED: HOLD METFORMIN - RECEIVED CONTRAST 20 ML VIAL IV SCH (12:15)
--- NOTE | 2020-07-16 12:17 | Diagnostic Imaging Report ---
EXAMINATION: CT angiography of the chest. TECHNIQUE: Contrast enhanced thin section helical images were obtained through the chest with intravenous contrast timed for the optimal opacification of the arterial structures per CTA protocol. Post-processing, reconstructions and interpretation of angiographic images of the vessels was performed. 3D MIP reconstructions were performed and reviewed. All CT scans use one or more of the following dose optimizing techniques: automated exposure control, MA and/or KvP adjustment based on a patient size and exam type, or iterative reconstruction. HISTORY: Covid positive, shortness of breath. COMPARISON: None available. FINDINGS: There is no pulmonary embolism. There is severe groundglass and septal line thickening in a crazy paving pattern throughout both lungs consistent with COVID-19 pneumonia and acute lung injury. No pleural effusion. No pneumothorax. No suspicious nodules. There is no axillary or supraclavicular lymphadenopathy. There is no mediastinal lymphadenopathy. Heart size is normal. There are severe coronary artery calcifications. No pericardial effusion. Aorta is normal in caliber. Limited views of the upper abdomen show changes of cholecystectomy. There are no suspicious osseous lesions. IMPRESSION: 1. Severe groundglass and septal line thickening throughout both lungs in a crazy paving pattern consistent with acute lung injury in the setting of COVID-19 pneumonia. 2. No pulmonary embolism. Dictated by: Dictated on workstation # [id number]
[2020-07-16] MEDS ORDERED: INSU100V16 SC (13:54)
[2020-07-16] MEDS ORDERED: ASPI-1238 PO (13:54)
[2020-07-16] MEDS ORDERED: ALBU18HF2 INH (13:54)
[2020-07-16] MEDS ORDERED: MULT-1136 PO (13:54)
[2020-07-16] MEDS ORDERED: PANT40TA52 PO (13:54)
[2020-07-16] MEDS ORDERED: LEVO50TA6 PO (13:54)
--- NOTE | 2020-07-16 13:55 | NUR ---
SPOKE WITH THE PT (CALLED THE PTS CELL), WENT THRU THE EXT MED HISTORY AND CALLED SHAKIRA TO COMPLETE THE MED REC PT WAS ABLE TO LIST HIS MEDICATIONS WELL WHEN/HOW HE TAKES EACH ACCORDING TO THE PT HE TAKES SIMVASTATIN 20MG TWICE WEEKLY (LAST FILLED JANUARY 2019 #90), I DID INCLUDE THE PAST DUE FILL ON THE MED REC PT WAS RECENTLY PRESCRIBED A Z-BLAKE (ON 07-10-2020)BUT THE PT LET ME KNOW HE HAS FINISHED TAKING OTC MEDS: ASPIRIN 81 [employer]
--- NOTE | 2020-07-16 14:33 | NUR ---
pt transferred to bed 432 without incident, report given to Suzanna ACUÑA
[2020-07-16 14:40] VITALS: BP 138/76
--- NOTE | 2020-07-16 14:59 | History & Physical-Hospitalist ---
History of Present Illness HPI/Chief Complaint Amandeep Shen is a 54-year-old male with past medical history of type I diabetes mellitus on insulin pump, hypertension, hyperlipidemia, GERD, who presented with shortness of breath. He was diagnosed with COVID on Monday, 07/10. His symptoms started 9 days ago. He thinks he got it from work because someone in their office had COVID. He reports that he was doing well at home on Monday. He checked his oxygen saturation on Monday evening and it was 99 percent. Then on Monday he felt much more short of breath. Yesterday he took a shower and then we'll he was shaving he became very short of breath. His , who is a nurse, checked his oxygen saturation and it was the mid 80s. She encouraged him to come to the emergency room. He denies fevers. He has had a cough. He denies any diarrhea. He denies chest pain. He denies nausea and vomiting. He denies any loss of taste or smell. He has lost his appetite. Source: patient Exam Limitations: no limitations Date Seen 07/16/20 Time Seen by a Provider: 10:45 Attending Physician Eva Olvera MD PCP Vargas Bartholomew MD Referring Physician Date of Admission Jul 15, 2020 at 19:14 Home Medications & Allergies Home Medications Reviewed patient Home Medication Reconciliation performed by pharmacy medication reconciliations senior radiation protection technician and/or nursing. Patients Allergies have been reviewed. Allergies Allergies Coded Allergies No Known Drug Allergies (Verified09/23/15) Past Ckbculj-Dujcmd-Ujrbcm Hx Past Med/Social Hx: Reviewed Nursing Past Med/Soc Hx Patient Social History Alcohol Use: Occasionally Uses Recreational Drug Use: No Smoking Status: Never a Smoker 2nd Hand Smoke Exposure: No Recent Foreign Travel: No Contact w/other who traveled: No Recent Hopitalizations: No Recent Infectious Disease Expo: No Seasonal Allergies Seasonal Allergies: No Past Medical History Cardiac: High Cholesterol, Hypertension Gastrointestinal: Gastroesophageal Reflux Endocrine: Diabetes, Insulin dep History of Blood Disorders: No Review of Systems Constitutional: malaise, weakness EENTM: no symptoms reported Respiratory: cough, dyspnea on exertion, short of breath Cardiovascular: no symptoms reported Gastrointestinal: no symptoms reported Genitourinary: no symptoms reported Musculoskeletal: no symptoms reported Skin: no symptoms reported Psychiatric/Neurological: No Symptoms Reported Physical Exam Physical Exam Vital Signs Vital Signs - First Documented 07/15/20 17:35 Temp 37.9 Pulse 98 Resp 22 B/P (MAP) 194/92 (126) Pulse Ox 88 O2 Delivery Non Rebreather O2 Flow Rate 12.00 FiO2 70 Capillary Refill : Less Than 3 Seconds Height, Weight, BMI Height: 5'8.00" Weight: 187lbs. 0.0oz. 84.618368jk; 27.00 BMI Method: General Appearance: No Apparent Distress, WD/WN HEENT: PERRL/EOMI, Pharynx Normal Neck: Normal Inspection, Supple Respiratory: Lungs Clear, Normal Breath Sounds, No Respiratory Distress, Other (wearing Vapotherm) Cardiovascular: Regular Rate, Rhythm, No Edema, No Murmur Gastrointestinal: Normal Bowel Sounds, Non Tender, Soft Extremity: Normal Inspection, Non Tender, No Pedal Edema Neurologic/Psychiatric: Alert, Oriented x3, No Motor/Sensory Deficits, Normal Mood/Affect Skin: Normal Color, Warm/Dry Lymphatic: No Adenopathy Results Results/Procedures Labs Laboratory Tests 07/15/20 17:45 07/16/20 04:00 Patient resulted labs reviewed. Imaging: Reviewed Imaging Report Assessment/Plan Admission Diagnosis acute respiratory failure due to COVID-19 Admission Status: Inpatient Order (span 2 midnights) Reason for Inpatient Admission: Hypoxia requiring supplemental oxygen Assessment and Plan Acute respiratory failure due to COVID-19 Pneumonia Elevated procalcitonin Elevated d-dimer COVID positive 07/10 Started on Decadron Started on Remdesivir CT Chest with no PE, consistent with COVID Prophylactic Lovenox Transition to Zosyn, recent outpatient antibiotics Proning as tolerated T1DM with hyperglycemia Steroid-induced hyperglycemia Insulin pump Sliding scale insulin Elevated LFTs Chronic issue US Liver without abnormalities Hepatitis panel pending Monitor while on Remdesivir HTN GERD Continue home meds HLD Hold statin due to LFTs DVT Prophylaxis: Lovenox Diagnosis/Problems Diagnosis/Problems (1) Acute respiratory failure due to COVID-19 Status: Acute (2) Elevated procalcitonin Status: Acute (3) Elevated d-dimer Status: Acute (4) Pneumonia Status: Acute (5) Elevated LFTs Status: Acute (6) T1DM (type 1 diabetes mellitus) Status: Acute Qualifiers: Diabetes mellitus complication status: with hyperglycemia Qualified Codes: E10.65 - Type 1 diabetes mellitus with hyperglycemia (7) Steroid-induced hyperglycemia Status: Acute (8) HTN (hypertension) Status: Chronic (9) HLD (hyperlipidemia) Status: Chronic (10) GERD (gastroesophageal reflux disease) Status: Chronic Clinical Quality Measures DVT/VTE Risk/Contraindication: Risk Factor Score Per Nursin RFS Level Per Nursing on Admit: 4+=Very High ELEAZAR MOSES MD Jul 16, 2020 14:59
[2020-07-16 15:35] VITALS: BP 148/75
[2020-07-16] MEDS: inSUlin ASPART (NovoLOG) 1 UNIT/0.01 ML (CHARGE PER UNIT) SC SCH ×2 (16:32→20:33)
--- NOTE | 2020-07-16 16:34 | NUR ---
Patients BS at 1600 300, has a insulin pump and per report from nurse Collins, ICU patient can use his own insulin as he has an insulin pump. He has a basal rate of 4 and gave himself an additional 11 units.
[2020-07-16] MEDS: PIPERACILLIN/TAZOBACTAM (BULK) 4.5 GM in NS (IVPB) 100 ML IV SCH (19:27)
[2020-07-16 20:04] LABS: HEPATITIS C ANTIBODY C Non-Reactive (Non-Reactive)
--- NOTE | 2020-07-16 20:15 | NUR ---
PT BLOOD GLUCOSE LEVEL -265. NON-ADMINISTERED SLIDING SCALE INSULIN. PT HAS OWN INSULIN PUMP, SELF ADMINISTERED 14U PER PTS OWN SCALE. IT WAS REPORTED BY [facility] NURSE THAT DR MOSES IS AWARE OF PT SELF ADMINISTERING INSULIN.
[2020-07-16 20:23] VITALS: BP 130/70
[2020-07-16] MEDS: PANTOPRAZOLE 40 MG (PROTONIX) TAB PO SCH (20:40)
[2020-07-16] MEDS ORDERED: AZITHROMYCIN 250 MG TAB (ZITHROMAX) PO SCH (21:00)
[2020-07-17] VITALS (7 sets, daily range): BP systolic 123–166; BP diastolic 65–79
--- NOTE | 2020-07-17 03:30 | NUR ---
PT O2 SAT 90-93 MOST OF THE NIGHT. PT HAD XRAY INVOLVING MOVING AROUND IN BED. PT O2 DOWN TO 85% MAXED ON VAPOTHERM WITHOUT RECOVERY AFTER SEVERAL MINUTES. CALLED RT TO ROOM AT 0331. [facility] RT SET UP BIPAP AT 100 FIO2. PT SAT CAME UP TO 98. RT TURNED FIO2 DOWN TO 90 PT IS SATING 94% ON BIPAP. WILL CONTINUE TO MONITOR OXYGEN LEVEL AND ALERT RT TO CHANGES.
[2020-07-17] MEDS: RT-ALBUTEROL INHALER HFA (VENTOLIN HFA) 18 GM IH SCH ×5 (03:37→20:13)
[2020-07-17] MEDS: PIPERACILLIN/TAZOBACTAM (BULK) 4.5 GM in NS (IVPB) 100 ML IV SCH ×3 (03:38→18:14)
[2020-07-17] MEDS: ONDANSETRON 4 MG/2 ML (SDV) Z0FRAN IVP PRN (06:24)
[2020-07-17 06:25] LABS: BASOPHILS % (AUTO) 0 % (0-10); EOSINOPHILS % (AUTO) 0 % (0-10); HEMATOCRIT 43 % (40-54); HEMOGLOBIN 14.4 g/dL (13.3-17.7); LYMPHOCYTES # (AUTO) 0.5 10^3/uL (1.0-4.0); LYMPHOCYTES % (AUTO) 4 % (12-44); MEAN CORPUSCULAR HEMOGLOBIN 29 pg (25-34); MEAN CORPUSCULAR HGB CONC 33 g/dL (32-36); MEAN CORPUSCULAR VOLUME 87 fL (80-99); MEAN PLATELET VOLUME 10.2 fL (9.0-12.2); MONOCYTES # (AUTO) 0.4 10^3/uL (0.0-1.0); MONOCYTES % (AUTO) 4 % (0-12); NEUTROPHILS # (AUTO) 10.3 10^3/uL (1.8-7.8); NEUTROPHILS % (AUTO) 90 % (42-75); PLATELET COUNT 326 10^3/uL (130-400); WHITE BLOOD COUNT 11.4 10^3/uL (4.3-11.0)
[2020-07-17] MEDS: inSUlin ASPART (NovoLOG) 1 UNIT/0.01 ML (CHARGE PER UNIT) SC SCH ×4 (06:29→22:54)
[2020-07-17] MEDS: LEVOTHYROXINE 50 MCG (LEVOTHROID) TAB PO SCH (06:29)
[2020-07-17] MEDS: dexAMETHasone 6 MG TAB (DECADRON) PO SCH (06:29)
[2020-07-17 06:32] LABS: ALBUMIN 3.2 GM/DL (3.2-4.5); CHLORIDE 102 MMOL/L (98-107); POTASSIUM 5.2 MMOL/L (3.6-5.0); SODIUM 140 MMOL/L (135-145)
[2020-07-17 06:34] LABS: CALCIUM 9.6 MG/DL (8.5-10.1)
[2020-07-17 06:35] LABS: GLUCOSE 212 MG/DL (70-105); TOTAL PROTEIN 7.4 GM/DL (6.4-8.2)
[2020-07-17 06:36] LABS: CARBON DIOXIDE 26 MMOL/L (21-32)
[2020-07-17 06:37] LABS: BILIRUBIN,TOTAL 1.4 MG/DL (0.1-1.0)
[2020-07-17 06:38] LABS: ALKALINE PHOSPHATASE 320 U/L (40-136); PHOSPHORUS 4.1 MG/DL (2.3-4.7)
[2020-07-17 06:39] LABS: GFR ESTIMATED > 60
[2020-07-17 06:40] LABS: BUN/CREATININE RATIO 34
[2020-07-17 06:42] LABS: ALANINE AMINOTRANSFERASE 97 U/L (0-55); MAGNESIUM 2.6 MG/DL (1.6-2.4)
[2020-07-17] MEDS: REMDESIVIR 100 MG/NS 250 ML IVPB IV SCH ×2 (07:57)
[2020-07-17] MEDS: ENOXAPARIN 40 MG/0.4 ML (LOVENOX) SYR SC SCH (07:59)
[2020-07-17] MEDS: lisINopril 20 MG (PRINIVIL) TABLET PO SCH (07:59)
[2020-07-17] MEDS ORDERED: ACETAMINOPHEN 500 MG TAB (TYLENOL) ONE (08:36)
[2020-07-17] MEDS ORDERED: ACETAMINOPHEN 500 MG TAB (TYLENOL) PO ONE (08:45)
[2020-07-17] MEDS ORDERED: NON-FORMULARY MEDICATION 1 EA EA (Benazepril HCl 40 MG) PO SCH (09:00)
--- NOTE | 2020-07-17 09:12 | Diagnostic Imaging Report ---
Indication: COVID positive. Respiratory failure. EXAMINATION: Chest 07/17/2020 Comparison: 07/16/2020 FINDINGS: The heart is prominent. Pulmonary vasculature is congested. Diffuse airspace opacities throughout both lungs slightly worsened. There are no effusions. No pneumothorax. Impression: 1. Persistent bilateral airspace opacities consistent with history of COVID. Report was faxed to Juan/RN Infection Control by pramod at 9:11am. Dictated by: Dictated on workstation # [id number]
--- NOTE | 2020-07-17 11:19 | Progress Note - Hospitalist ---
Subjective HPI/CC On Admission Date Seen by Provider: Jul 17, 2020 Time Seen by Provider: 07:15 Amandeep Shen is a 54-year-old male with past medical history of type I diabetes mellitus on insulin pump, hypertension, hyperlipidemia, GERD, who presented with shortness of breath. He was diagnosed with COVID on Monday, 07/10. His sym ptoms started 9 days ago. He thinks he got it from work because someone in their office had COVID. He reports that he was doing well at home on Monday. He checked his oxygen saturation on Monday evening and it was 99 percent. Then on Monday he felt much more short of breath. Yesterday he took a shower and then we'll he was shaving he became very short of breath. His , who is a nurse, checked his oxygen saturation and it was the mid 80s. She encouraged him to come to the emergency room. He denies fevers. He has had a cough. He denies any diarrhea. He denies chest pain. He denies nausea and vomiting. He denies any loss of taste or smell. He has lost his appetite. Subjective/Events-last exam He wore BiPAP overnight. He feels ok and slept well. He liked the BiPAP. He is not having any fevers. He still has no appetite. He would like to continue using his insulin pump. Focused Exam Lactate Level 07/15/20 17:45: Lactic Acid Level 2.46*H 07/15/20 20:40: Lactic Acid Level 1.42 Objective Exam Vital Signs Vital Signs Date Time Temp Pulse Resp B/P (MAP) Pulse Ox O2 Delivery O2 Flow Rate FiO2 07/17/20 10:44 82 40 93 70.00 07/17/20 09:00 NIV Bilevel 70 07/17/20 08:06 37.0 157/76 (103) Capillary Refill : Less Than 3 Seconds General Appearance: No Apparent Distress, WD/WN Respiratory: Lungs Clear, Normal Breath Sounds, No Respiratory Distress, Other (wearing BiPAP) Cardiovascular: Regular Rate, Rhythm, No Edema, No Murmur Gastrointestinal: Normal Bowel Sounds, Non Tender, Soft Extremity: Normal Inspection, Non Tender, No Pedal Edema Neurologic/Psychiatric: Alert, No Motor/Sensory Deficits, Normal Mood/Affect Skin: Normal Color, Warm/Dry Results/Procedures Lab Laboratory Tests 07/17/20 06:15 Patient resulted labs reviewed. Imaging: Reviewed Imaging Report Assessment/Plan Assessment and Plan Assess & Plan/Chief Complaint Acute respiratory failure due to COVID-19 Pneumonia Continue Decadron day 3/10 Continue Remdesivir day 2/5 Discussed convalescent plasma, risks/benefits/EUA and agrees to use Continue Zosyn Vapotherm and BiPAP as needed T1DM with hyperglycemia Steroid-induced hyperglycemia Prefers to continue using insulin pump Sliding scale insulin Elevated LFTs Chronic issue, improving US Liver without abnormalities Hepatitis panel negative Monitor while on Remdesivir HTN GERD Continue home meds HLD Hold statin due to LFTs DVT Prophylaxis: Lovenox Diagnosis/Problems Diagnosis/Problems (1) Acute respiratory failure due to COVID-19 Status: Acute (2) Elevated procalcitonin Status: Acute (3) Elevated d-dimer Status: Acute (4) Pneumonia Status: Acute (5) Elevated LFTs Status: Acute (6) T1DM (type 1 diabetes mellitus) Status: Acute Qualifiers: Diabetes mellitus complication status: with hyperglycemia Qualified Codes: E10.65 - Type 1 diabetes mellitus with hyperglycemia (7) Steroid-induced hyperglycemia Status: Acute (8) HTN (hypertension) Status: Chronic (9) HLD (hyperlipidemia) Status: Chronic (10) GERD (gastroesophageal reflux disease) Status: Chronic Clinical Quality Measures DVT/VTE Risk/Contraindication: Risk Factor Score Per Nursin RFS Level Per Nursing on Admit: 4+=Very High ELEAZAR MOSES MD Jul 17, 2020 11:19
--- NOTE | 2020-07-17 11:39 | NUR ---
PT BLOOD GLUCOSE LEVEL -245. NON-ADMINISTERED SLIDING SCALE INSULIN. PT HAS OWN INSULIN PUMP, SELF ADMINISTERED 10U PER PTS OWN SCALE. IT WAS REPORTED BY [facility]OC [facility] NURSE THAT DR MOSES IS AWARE OF PT SELF ADMINISTERING INSULIN.
--- NOTE | 2020-07-17 16:52 | NUR ---
BLOOD SUGAR 196 PATIENT REPORTS HE WILL NOT GIVE ANY ADDITIONAL INSULIN VIA HIS INSULIN PUMP TO THIS RN.
[2020-07-17] MEDS: PANTOPRAZOLE 40 MG (PROTONIX) TAB PO SCH (20:28)
[2020-07-17] MEDS: IBUPROFEN 600 MG (MOTRIN) TAB PO PRN (20:30)
--- NOTE | 2020-07-17 20:35 | NUR ---
PT BLOOD GLUCOSE LEVEL -157. NON-ADMINISTERED SLIDING SCALE INSULIN. PT HAS OWN INSULIN PUMP, PT NON-ADMINISTERED INSULIN AT THIS TIME.
[2020-07-18] VITALS (22 sets, daily range): BP systolic 115–167; BP diastolic 47–93
[2020-07-18] MEDS: RT-ALBUTEROL INHALER HFA (VENTOLIN HFA) 18 GM IH SCH ×7 (01:43→22:14)
[2020-07-18] MEDS: PIPERACILLIN/TAZOBACTAM (BULK) 4.5 GM in NS (IVPB) 100 ML IV SCH ×3 (01:43→18:14)
[2020-07-18] MEDS: dexAMETHasone 6 MG TAB (DECADRON) PO SCH (05:00)
[2020-07-18] MEDS: LEVOTHYROXINE 50 MCG (LEVOTHROID) TAB PO SCH (05:00)
[2020-07-18] MEDS: inSUlin ASPART (NovoLOG) 1 UNIT/0.01 ML (CHARGE PER UNIT) SC SCH ×4 (05:18→21:57)
--- NOTE | 2020-07-18 05:18 | NUR ---
PT BLOOD GLUCOSE LEVEL -109. NON-ADMINISTERED SLIDING SCALE INSULIN. PT HAS OWN INSULIN PUMP, PT NON-ADMINISTERED INSULIN AT THIS TIME.
[2020-07-18] MEDS: REMDESIVIR 100 MG/NS 250 ML IVPB IV SCH ×2 (06:40)
[2020-07-18 06:50] LABS: BASOPHILS % (AUTO) 0 % (0-10); EOSINOPHILS % (AUTO) 0 % (0-10); HEMATOCRIT 46 % (40-54); LYMPHOCYTES # (AUTO) 0.7 10^3/uL (1.0-4.0); LYMPHOCYTES % (AUTO) 5 % (12-44); MEAN CORPUSCULAR HEMOGLOBIN 28 pg (25-34); MEAN CORPUSCULAR HGB CONC 33 g/dL (32-36); MEAN CORPUSCULAR VOLUME 87 fL (80-99); MEAN PLATELET VOLUME 9.7 fL (9.0-12.2); MONOCYTES # (AUTO) 0.4 10^3/uL (0.0-1.0); MONOCYTES % (AUTO) 3 % (0-12); NEUTROPHILS # (AUTO) 11.7 10^3/uL (1.8-7.8); NEUTROPHILS % (AUTO) 90 % (42-75); PLATELET COUNT 340 10^3/uL (130-400); WHITE BLOOD COUNT 13.1 10^3/uL (4.3-11.0)
[2020-07-18 06:56] LABS: ALBUMIN 3.2 GM/DL (3.2-4.5); CHLORIDE 104 MMOL/L (98-107); POTASSIUM 4.4 MMOL/L (3.6-5.0); SODIUM 142 MMOL/L (135-145)
[2020-07-18 06:57] LABS: CALCIUM 9.3 MG/DL (8.5-10.1)
[2020-07-18 06:58] LABS: GLUCOSE 91 MG/DL (70-105)
[2020-07-18 06:59] LABS: TOTAL PROTEIN 7.3 GM/DL (6.4-8.2)
[2020-07-18 07:00] LABS: BILIRUBIN,TOTAL 1.5 MG/DL (0.1-1.0); CARBON DIOXIDE 27 MMOL/L (21-32)
[2020-07-18 07:02] LABS: ALKALINE PHOSPHATASE 296 U/L (40-136); CREATININE SERUM 0.67 MG/DL (0.60-1.30); GFR ESTIMATED > 60; PHOSPHORUS 2.9 MG/DL (2.3-4.7)
[2020-07-18 07:03] LABS: BUN/CREATININE RATIO 42
[2020-07-18 07:05] LABS: ALANINE AMINOTRANSFERASE 82 U/L (0-55); MAGNESIUM 2.4 MG/DL (1.6-2.4)
[2020-07-18] MEDS ORDERED: ACETAMINOPHEN 325 MG TABLET PO PRN (08:30)
[2020-07-18] MEDS ORDERED: ALPRAZolam 0.5 MG (XANAX) TAB PO PRN (08:30)
[2020-07-18] MEDS ORDERED: diphenhydrAMINE 25 MG TAB (BENADRYL) PO PRN (08:30)
[2020-07-18] MEDS ORDERED: MELATONIN 3 MG TABLET PO PRN (08:30)
[2020-07-18] MEDS ORDERED: polyethylene glycoL POWDER 17 GM (MIRALAX) PACK PO PRN (08:30)
--- NOTE | 2020-07-18 08:44 | Progress Note - Hospitalist ---
Subjective HPI/CC On Admission Date Seen by Provider: Jul 18, 2020 Time Seen by Provider: 08:10 Amandeep Shen is a 54-year-old male with past medical history of type I diabetes mellitus on insulin pump, hypertension, hyperlipidemia, GERD, who presented with shortness of breath. He was diagnosed with COVID on Monday, 07/10. His sym ptoms started 9 days ago. He thinks he got it from work because someone in their office had COVID. He reports that he was doing well at home on Monday. He checked his oxygen saturation on Monday evening and it was 99 percent. Then on Monday he felt much more short of breath. Yesterday he took a shower and then we'll he was shaving he became very short of breath. His , who is a nurse, checked his oxygen saturation and it was the mid 80s. She encouraged him to come to the emergency room. He denies fevers. He has had a cough. He denies any diarrhea. He denies chest pain. He denies nausea and vomiting. He denies any loss of taste or smell. He has lost his appetite. Subjective/Events-last exam He is obviously frustrated this morning. He is wearing his BiPAP. They tried to switch him to Vapotherm but were unsuccessful due to oxygen desaturations. He still feels short of breath. He is not having any pain. He denies anxiety. He has no other complaints or concerns. Focused Exam Lactate Level 07/15/20 17:45: Lactic Acid Level 2.46*H 07/15/20 20:40: Lactic Acid Level 1.42 Objective Exam Vital Signs Vital Signs Date Time Temp Pulse Resp B/P (MAP) Pulse Ox O2 Delivery O2 Flow Rate FiO2 07/18/20 07:55 37.3 90 36 140/64 (89) 92 NIV Bilevel 90.00 07/17/20 20:20 70 Capillary Refill : Less Than 3 Seconds General Appearance: No Apparent Distress, WD/WN Respiratory: No Respiratory Distress, Crackles, Other (wearing BiPAP) Cardiovascular: Regular Rate, Rhythm, No Edema, No Murmur Gastrointestinal: Normal Bowel Sounds, Non Tender, Soft Extremity: Normal Inspection, Non Tender, No Pedal Edema Neurologic/Psychiatric: Alert, No Motor/Sensory Deficits, Other (flat affect) Skin: Normal Color, Warm/Dry Results/Procedures Lab Laboratory Tests 07/18/20 06:37 Patient resulted labs reviewed. Imaging: Reviewed Imaging Report Assessment/Plan Assessment and Plan Assess & Plan/Chief Complaint Acute respiratory failure due to COVID-19 Pneumonia Continue Decadron day / Continue Remdesivir day 3/5 Convalescent plasma ordered Continue Zosyn Vapotherm and BiPAP as needed Repeat d-dimer Continue prophylactic Lovenox T1DM with hyperglycemia Steroid-induced hyperglycemia Transition off insulin pump Begin Levemir Novolog with meals Sliding scale insulin Elevated LFTs Chronic issue, improving US Liver without abnormalities Hepatitis panel negative Monitor while on Remdesivir HTN GERD Continue home meds HLD Hold statin due to LFTs DVT Prophylaxis: Lovenox Diagnosis/Problems Diagnosis/Problems (1) Acute respiratory failure due to COVID-19 Status: Acute (2) Elevated procalcitonin Status: Acute (3) Elevated d-dimer Status: Acute (4) Pneumonia Status: Acute (5) Elevated LFTs Status: Acute (6) T1DM (type 1 diabetes mellitus) Status: Acute Qualifiers: Diabetes mellitus complication status: with hyperglycemia Qualified Codes: E10.65 - Type 1 diabetes mellitus with hyperglycemia (7) Steroid-induced hyperglycemia Status: Acute (8) HTN (hypertension) Status: Chronic (9) HLD (hyperlipidemia) Status: Chronic (10) GERD (gastroesophageal reflux disease) Status: Chronic Clinical Quality Measures DVT/VTE Risk/Contraindication: Risk Factor Score Per Nursin RFS Level Per Nursing on Admit: 4+=Very High ELEAZAR MOSES MD Jul 18, 2020 08:44
[2020-07-18] MEDS: ENOXAPARIN 40 MG/0.4 ML (LOVENOX) SYR SC SCH (09:15)
[2020-07-18] MEDS: lisINopril 20 MG (PRINIVIL) TABLET PO SCH (09:15)
--- NOTE | 2020-07-18 09:20 | NUR ---
THIS RN AT BEDSIDE WITH PT. THIS RN EXPLAINS THAT DR. MOSES WOULD LIKE TO TRY SWITCHING PT TO VAPOTHERM THIS MORNING TO SEE IF PT CAN TOLERATE IT AND KEEP HIS O2 SATURATIONS ABOVE 90%. THIS RN ALSO EDUCATES PT ON THE IMPORTANCE OF COUGHING AND DEEP BREATHING EXERCISES. PT VERBALIZES UNDERSTANDING. THIS RN REASSURES PT THAT SHE WILL REMAIN AT BEDSIDE TO CLOSELY MONITOR HIS OXYGEN SATURATIONS. AT O900 THIS RN SITS PT UP AT SIDE OF BED. PT TOLERATES WELL. PT IS ALSO SWITCHED TO VAPOTHERM AT THIS TIME 40L @100%. PT O2 SATS HOLDING AT 89-90%. AFTER COUGHING AND DEEP BREATHING PT SATS ARE UP TO 93%, BUT PT IS ONLY ABLE TO MAINTAIN O2 SATS ABOVE 90% FOR APPROX. 3 MINUTES. AT O910 THIS RN ASSISTS PT IN STANDING TO USE URINAL AND TRANSFER PT TO CHAIR. AFTER URINATING AND TRANSFER PT O2 SATS REMAIN BETWEEN 82-84%. PT IS ABLE TO RECOVER TO 88% AFTER COUGHING AND DEEP BREATHING. 0915: PT IS PLACED BACK ON BIPAP WHILE IN RECLINER. O2 SATS INCREASE TO 92%.
--- NOTE | 2020-07-18 10:15 | NUR ---
AURELIA ON UNIT AT THIS TIME. THIS RN NOTIFIES AURELIA OF THIS RN'S ATTEMPT TO MOVE PT FROM BIPAP TO VAPOTHERM. AURELIA STATES HE PLANS TO MOVE PT TO ICU. THIS RN ALSO NOTIFIES AURELIA THAT PT HAS POOR ORAL INTAKE AND PT'S URINE IS DARK DO COLORED. ORDER TO START LR AT 100ML/HR.
[2020-07-18] MEDS ORDERED: LACTATED RINGERS 1,000 ML IV ONE ×2 (10:30→20:27)
--- NOTE | 2020-07-18 11:32 | NUR ---
PATIENT FROM 4TH FLOOR TO ICU 3. REPORT FROM ARIANNE VALLECILLO, PATIENT ASSESSED, HOOKED UP TO MONITORS. NO QUESTIONS AT THIS TIME. FROM PATIENT.
[2020-07-18] MEDS ORDERED: DexMEDEtomidine PRE MIX 100 ML IV ONE (11:59)
[2020-07-18] MEDS ORDERED: fentaNYL INJECTION 100 MCG/2 ML AMP ONE (11:59)
[2020-07-18] MEDS: DexMEDEtomidine PRE MIX 100 ML IV SCH ×2 (12:12→21:41)
[2020-07-18] MEDS: fentaNYL INJECTION 100 MCG/2 ML AMP IVP PRN ×2 (12:13→16:22)
[2020-07-18] MEDS ORDERED: inSUlin ASPART (NovoLOG) 1 UNIT/0.01 ML (CHARGE PER UNIT) SC SCH (13:00)
[2020-07-18] MEDS: LACTATED RINGERS 1,000 ML IV SCH (20:46)
[2020-07-18] MEDS: PANTOPRAZOLE 40 MG (PROTONIX) TAB PO SCH (21:40)
[2020-07-18] MEDS: RT-ALBUTEROL INHALER HFA (VENTOLIN HFA) 18 GM IH PRN ×2 (21:54→23:25)
[2020-07-19] VITALS (46 sets, daily range): BP systolic 123–179; BP diastolic 57–82
[2020-07-19] MEDS: RT-ALBUTEROL INHALER HFA (VENTOLIN HFA) 18 GM IH SCH ×6 (02:46→23:46)
[2020-07-19 03:42] LABS: BASOPHILS % (AUTO) 0 % (0-10); EOSINOPHILS % (AUTO) 0 % (0-10); HEMATOCRIT 45 % (40-54); HEMOGLOBIN 14.5 g/dL (13.3-17.7); LYMPHOCYTES # (AUTO) 0.4 10^3/uL (1.0-4.0); LYMPHOCYTES % (AUTO) 3 % (12-44); MEAN CORPUSCULAR HEMOGLOBIN 28 pg (25-34); MEAN CORPUSCULAR HGB CONC 33 g/dL (32-36); MEAN CORPUSCULAR VOLUME 87 fL (80-99); MEAN PLATELET VOLUME 9.9 fL (9.0-12.2); MONOCYTES # (AUTO) 0.4 10^3/uL (0.0-1.0); MONOCYTES % (AUTO) 3 % (0-12); NEUTROPHILS # (AUTO) 12.1 10^3/uL (1.8-7.8); NEUTROPHILS % (AUTO) 91 % (42-75); PLATELET COUNT 191 10^3/uL (130-400); WHITE BLOOD COUNT 13.3 10^3/uL (4.3-11.0)
[2020-07-19] MEDS: PIPERACILLIN/TAZOBACTAM (BULK) 4.5 GM in NS (IVPB) 100 ML IV SCH ×3 (03:44→21:07)
[2020-07-19 03:48] LABS: ALBUMIN 2.9 GM/DL (3.2-4.5); CHLORIDE 104 MMOL/L (98-107); POTASSIUM 4.8 MMOL/L (3.6-5.0); SODIUM 138 MMOL/L (135-145)
[2020-07-19 03:49] LABS: CALCIUM 8.6 MG/DL (8.5-10.1)
[2020-07-19 03:51] LABS: GLUCOSE 229 MG/DL (70-105); TOTAL PROTEIN 6.6 GM/DL (6.4-8.2)
[2020-07-19 03:52] LABS: BILIRUBIN,TOTAL 1.4 MG/DL (0.1-1.0); CARBON DIOXIDE 22 MMOL/L (21-32)
[2020-07-19 03:54] LABS: ALKALINE PHOSPHATASE 263 U/L (40-136); CREATININE SERUM 0.67 MG/DL (0.60-1.30); GFR ESTIMATED > 60
[2020-07-19 03:55] LABS: BUN/CREATININE RATIO 55
[2020-07-19 03:57] LABS: ALANINE AMINOTRANSFERASE 64 U/L (0-55); MAGNESIUM 2.4 MG/DL (1.6-2.4)
[2020-07-19] MEDS: LEVOTHYROXINE 50 MCG (LEVOTHROID) TAB PO SCH (06:42)
[2020-07-19] MEDS: LACTATED RINGERS 1,000 ML IV SCH ×2 (06:42→12:05)
--- NOTE | 2020-07-19 06:56 | Diagnostic Imaging Report ---
Indication: COVID pneumonia. Comparison made with prior examination from 07/17/2020. FINDINGS: There are diffuse bilateral pulmonary infiltrates. Heart size is normal. There is no pleural effusion or pneumothorax. The mediastinum is unremarkable. IMPRESSION: Diffuse bilateral pulmonary infiltrates compatible with COVID pneumonia. Report was faxed to Juan/RN Infection Control by pramod at 6:56am. Dictated by: Dictated on workstation # [id number]
[2020-07-19] MEDS: lisINopril 20 MG (PRINIVIL) TABLET PO SCH (08:14)
[2020-07-19] MEDS: dexAMETHasone 6 MG TAB (DECADRON) PO SCH (08:14)
[2020-07-19] MEDS: REMDESIVIR 100 MG/NS 250 ML IVPB IV SCH ×2 (08:15)
[2020-07-19] MEDS: ENOXAPARIN 40 MG/0.4 ML (LOVENOX) SYR SC SCH (08:15)
[2020-07-19] MEDS: inSUlin ASPART (NovoLOG) 1 UNIT/0.01 ML (CHARGE PER UNIT) SC SCH ×4 (08:15→21:08)
[2020-07-19 09:01] LABS: ABG OXYGEN SATURATION 96 % (94-100); ABG PCO2 40 MMHG (35-45); ABG PH 7.38 (7.37-7.43); ABG PO2 92 MMHG (79-93); ABG TCO2 24.6 MMOL/L (21.0-31.0); ALLENS TEST YES-POS
[2020-07-19 09:02] LABS: INSPIRED O2 BIPAP 75%; PATIENT TEMP 98.8; VENTILATOR NO
--- NOTE | 2020-07-19 12:39 | Progress Note - Hospitalist ---
Subjective HPI/CC On Admission Date Seen by Provider: Jul 19, 2020 Time Seen by Provider: 08:40 Amandeep Shen is a 54-year-old male with past medical history of type I diabetes mellitus on insulin pump, hypertension, hyperlipidemia, GERD, who presented with shortness of breath. He was diagnosed with COVID on Monday, 07/10. His sym ptoms started 9 days ago. He thinks he got it from work because someone in their office had COVID. He reports that he was doing well at home on Monday. He checked his oxygen saturation on Monday evening and it was 99 percent. Then on Monday he felt much more short of breath. Yesterday he took a shower and then we'll he was shaving he became very short of breath. His , who is a nurse, checked his oxygen saturation and it was the mid 80s. She encouraged him to come to the emergency room. He denies fevers. He has had a cough. He denies any diarrhea. He denies chest pain. He denies nausea and vomiting. He denies any loss of taste or smell. He has lost his appetite. Subjective/Events-last exam He is lethargic. He has been on Precedex. He says his mask is uncomfortable. He denies any pain. He is still short of breath. Objective Exam Vital Signs Vital Signs Date Time Temp Pulse Resp B/P (MAP) Pulse Ox O2 Delivery O2 Flow Rate FiO2 07/19/20 12:00 90 32 152/71 (98) 97 NIV Bilevel 65.00 07/19/20 11:00 36.8 07/19/20 09:00 97 Capillary Refill : Less Than 3 Seconds General Appearance: No Apparent Distress, WD/WN Respiratory: Respiratory Distress (tachypnea), Other (coarse breath sounds, wearing BiPAP) Cardiovascular: Regular Rate, Rhythm, No Edema, No Murmur Gastrointestinal: Normal Bowel Sounds, Non Tender, Soft Extremity: Normal Inspection, Non Tender, No Pedal Edema Neurologic/Psychiatric: No Motor/Sensory Deficits, Other (lethargic) Skin: Normal Color, Warm/Dry Results/Procedures Lab Laboratory Tests 07/19/20 03:25 Patient resulted labs reviewed. Imaging: Reviewed Imaging Report Assessment/Plan Assessment and Plan Assess & Plan/Chief Complaint Acute respiratory failure due to COVID-19 Pneumonia Continue Decadron day 11/30 Continue Remdesivir day 10/26 Convalescent plasma ordered Continue Zosyn Vapotherm and BiPAP as needed Continue prophylactic Lovenox Family requesting transfer to [facility], call placed to transfer line, awaiting decision T1DM with hyperglycemia Steroid-induced hyperglycemia Insulin pump removed Begin Levemir Sliding scale insulin Elevated LFTs Chronic issue, improving US Liver without abnormalities Hepatitis panel negative Monitor while on Remdesivir HTN GERD Continue home meds HLD Held statin due to LFTs DVT Prophylaxis: Lovenox Diagnosis/Problems Diagnosis/Problems (1) Acute respiratory failure due to COVID-19 Status: Acute (2) Elevated procalcitonin Status: Acute (3) Elevated d-dimer Status: Acute (4) Pneumonia Status: Acute (5) Elevated LFTs Status: Acute (6) T1DM (type 1 diabetes mellitus) Status: Acute Qualifiers: Diabetes mellitus complication status: with hyperglycemia Qualified Codes: E10.65 - Type 1 diabetes mellitus with hyperglycemia (7) Steroid-induced hyperglycemia Status: Acute (8) HTN (hypertension) Status: Chronic (9) HLD (hyperlipidemia) Status: Chronic (10) GERD (gastroesophageal reflux disease) Status: Chronic Clinical Quality Measures DVT/VTE Risk/Contraindication: Risk Factor Score Per Nursin RFS Level Per Nursing on Admit: 4+=Very High ELEAZAR MOSES MD Jul 19, 2020 12:39
[2020-07-19] MEDS: PANTOPRAZOLE 40 MG (PROTONIX) TAB PO SCH (21:07)
[2020-07-20] VITALS (7 sets, daily range): BP systolic 143–159; BP diastolic 59–81
[2020-07-20] MEDS: LACTATED RINGERS 1,000 ML IV SCH (02:31)
[2020-07-20] MEDS: RT-ALBUTEROL INHALER HFA (VENTOLIN HFA) 18 GM IH SCH ×2 (03:25→07:01)
[2020-07-20 03:35] LABS: BASOPHILS % (AUTO) 0 % (0-10); EOSINOPHILS % (AUTO) 0 % (0-10); HEMATOCRIT 43 % (40-54); HEMOGLOBIN 13.9 g/dL (13.3-17.7); LYMPHOCYTES # (AUTO) 0.6 10^3/uL (1.0-4.0); LYMPHOCYTES % (AUTO) 4 % (12-44); MEAN CORPUSCULAR HEMOGLOBIN 28 pg (25-34); MEAN CORPUSCULAR HGB CONC 33 g/dL (32-36); MEAN CORPUSCULAR VOLUME 86 fL (80-99); MEAN PLATELET VOLUME 10.1 fL (9.0-12.2); MONOCYTES # (AUTO) 0.3 10^3/uL (0.0-1.0); MONOCYTES % (AUTO) 2 % (0-12); NEUTROPHILS # (AUTO) 11.8 10^3/uL (1.8-7.8); NEUTROPHILS % (AUTO) 91 % (42-75); PLATELET COUNT 212 10^3/uL (130-400)
[2020-07-20 04:02] LABS: ALANINE AMINOTRANSFERASE 45 U/L (0-55); ALBUMIN 2.8 GM/DL (3.2-4.5); ALKALINE PHOSPHATASE 252 U/L (40-136); BILIRUBIN,TOTAL 1.5 MG/DL (0.1-1.0); BUN/CREATININE RATIO 51; CALCIUM 8.6 MG/DL (8.5-10.1); CARBON DIOXIDE 27 MMOL/L (21-32); CHLORIDE 105 MMOL/L (98-107); CREATININE SERUM 0.63 MG/DL (0.60-1.30); GFR ESTIMATED > 60; GLUCOSE 177 MG/DL (70-105); MAGNESIUM 2.5 MG/DL (1.6-2.4); PHOSPHORUS 2.7 MG/DL (2.3-4.7); POTASSIUM 4.4 MMOL/L (3.6-5.0); SODIUM 141 MMOL/L (135-145); TOTAL PROTEIN 6.6 GM/DL (6.4-8.2)
[2020-07-20 04:04] LABS: ABG BASE EXCESS 4.2 MMOL/L (-2.5-2.5); ABG OXYGEN SATURATION 99 % (94-100); ABG PCO2 43 MMHG (35-45); ABG PH 7.43 (7.37-7.43); ABG PO2 112 MMHG (79-93); ABG TCO2 29.7 MMOL/L (21.0-31.0)
[2020-07-20 04:05] LABS: ALLENS TEST YES-POS; INSPIRED O2 65%; PATIENT TEMP 36.6; VENTILATOR NO
[2020-07-20] MEDS: inSUlin ASPART (NovoLOG) 1 UNIT/0.01 ML (CHARGE PER UNIT) SC SCH (04:45)
[2020-07-20] MEDS: PIPERACILLIN/TAZOBACTAM (BULK) 4.5 GM in NS (IVPB) 100 ML IV SCH (05:22)
--- NOTE | 2020-07-20 05:44 | Pulmonary Consultation ---
History of Present Illness History of Present Illness Date Seen by Provider: Jul 20, 2020 Time Seen by Provider: 05:39 Date of Admission Allergies and Home Medications Allergies Coded Allergies: No Known Drug Allergies (Verified , 09/23/15) Home Medications Albuterol Sulfate 18 Gm Hfa.aer.ad, 2 PUFF INH Q6H PRN for SHORTNESS OF BREATH, (Reported) Aspirin 81 Mg Tablet.dr, 81 MG PO DAILY, (Reported) Benazepril HCl 40 Mg Tab, 40 MG PO HS, (Reported) Insulin Aspart 100 Unit/1 Ml Susp, UNIT SC PER PUMP, (Reported) Levothyroxine Sodium 50 Mcg Tablet, 50 MCG PO DAILY, (Reported) Multivitamin 1 Each Tablet, 1 EACH PO DAILY, (Reported) Pantoprazole Sodium 40 Mg Tablet.dr, 40 MG PO HS, (Reported) Simvastatin 20 Mg Tablet, 20 MG PO TWICE WEEKLY, (Reported) LAST FILLED JANUARY 2019 #90 Past Fdihakl-Kdxyvo-Jbfucg Hx Past Med/Social Hx: Reviewed Nursing Past Med/Soc Hx Patient Social History Alcohol Use: Occasionally Uses Recreational Drug Use: No Smoking Status: Never a Smoker 2nd Hand Smoke Exposure: No Recent Foreign Travel: No Contact w/Someone Who Travel: No Recent Infectious Disease Expo: No Recent Hopitalizations: No Physical Abuse: No Sexual Abuse: No Mistreated: No Fear: No Seasonal Allergies Seasonal Allergies: No Past Medical History Surgeries: No Respiratory: No Cardiac: Yes High Cholesterol, Hypertension Neurological: No Genitourinary: No Gastrointestinal: No Gastroesophageal Reflux Musculoskeletal: No Endocrine: Yes (TYPE 1 DIABETES) Diabetes, Insulin dep HEENT: No Cancer: No Psychosocial: No Integumentary: No Blood Disorders: No Review of Systems Time Seen by Provider: 05:44 Sepsis Event Evaluation Height, Weight, BMI Height: 5'8.00" Weight: 187lbs. 0.0oz. [id number]; 27.00 BMI Method: Exam Exam Vital Signs Date Time Temp Pulse Resp B/P (MAP) Pulse Ox O2 Delivery O2 Flow Rate FiO2 07/20/20 05:13 NIV Bilevel 55.00 07/20/20 03:25 79 27 93 65.00 07/20/20 01:00 76 07/19/20 23:47 75 24 95 55.00 07/19/20 23:00 80 25 152/66 (94) 96 NIV Bilevel 55.00 07/19/20 22:00 86 25 146/62 (90) 95 NIV Bilevel 55.00 07/19/20 21:00 97 NIV Bilevel 65 07/19/20 21:00 87 25 150/58 (88) 95 NIV Bilevel 55.00 07/19/20 20:00 92 27 165/65 (98) 94 NIV Bilevel 55.00 07/19/20 19:54 NIV Bilevel 55.00 07/19/20 19:14 96 26 97 70.00 07/19/20 19:00 100 32 139/58 (85) 96 NIV Bilevel 55.00 07/19/20 19:00 100 07/19/20 18:00 98 22 166/70 (94) 94 NIV Bilevel 70.00 07/19/20 17:45 103 22 164/75 (96) 07/19/20 17:30 99 26 159/70 (105) 87 07/19/20 17:15 105 36 161/69 (105) 86 07/19/20 17:00 101 38 157/69 (86) 83 NIV Bilevel 65.00 07/19/20 16:45 102 22 161/73 (109) 89 07/19/20 16:30 101 33 150/66 (79) 88 07/19/20 16:15 103 27 158/67 (80) 89 07/19/20 16:00 103 37 144/63 (94) 91 NIV Bilevel 65.00 07/19/20 15:45 105 23 149/63 (75) 90 07/19/20 15:30 105 34 146/62 (82) 88 07/19/20 15:18 37.7 07/19/20 15:15 106 24 146/58 (88) 85 07/19/20 15:00 113 33 137/62 (78) 86 NIV Bilevel 65.00 07/19/20 14:48 90 Vapotherm 40.00 100 07/19/20 14:45 95 32 143/63 (79) 88 07/19/20 14:30 92 31 146/61 (97) 92 07/19/20 14:15 90 25 155/65 (91) 98 07/19/20 14:00 94 26 149/58 (77) 95 NIV Bilevel 65.00 07/19/20 13:45 99 24 154/77 (117) 07/19/20 13:30 100 33 173/72 (121) 07/19/20 13:15 102 37 162/74 (101) 07/19/20 13:00 93 34 156/72 (83) NIV Bilevel 65.00 07/19/20 12:51 75 07/19/20 12:45 93 34 152/67 (88) 07/19/20 12:30 92 32 154/72 (86) 97 07/19/20 12:15 90 31 152/68 (102) 96 07/19/20 12:00 90 32 152/71 (98) 97 NIV Bilevel 65.00 07/19/20 11:00 36.8 84 30 123/57 (79) 97 NIV Bilevel 65.00 07/19/20 10:00 86 30 144/69 (94) 95 NIV Bilevel 65.00 07/19/20 09:54 83 34 96 65.00 07/19/20 09:00 73 30 143/68 (93) 95 NIV Bilevel 90.00 07/19/20 09:00 NIV Bilevel 75.00 97 07/19/20 08:00 70 26 163/73 (94) 95 NIV Bilevel 90.00 07/19/20 07:21 71 27 95 75.00 07/19/20 07:00 70 07/19/20 07:00 70 27 164/73 (102) 96 NIV Bilevel 90.00 07/19/20 06:00 70 28 173/76 (108) 97 NIV Bilevel 90.00 I & O 07/20/20 07:00 Intake Total 750 ml Output Total 1725 ml Balance -975 ml Height & Weight Height: 5'8.00" Weight: 187lbs. 0.0oz. 84.370314ay; 27.00 BMI Method: General Appearance: No Apparent Distress, WD/WN HEENT: PERRL/EOMI, Pharynx Normal Neck: Normal Inspection, Supple Respiratory: Respiratory Distress (tachypnea), Other (coarse breath sounds, wearing BiPAP) Cardiovascular: Regular Rate, Rhythm, No Edema, No Murmur Capillary Refill: Less Than 3 Seconds Gastrointestinal: normal bowel sounds, non tender, soft Extremity: Normal Inspection, Non Tender, No Pedal Edema Neurologic/Psychiatric: No Motor/Sensory Deficits, Other (lethargic) Skin: Normal Color, Warm/Dry Lymphatic: No Adenopathy Results Lab Laboratory Tests 07/18/20 06:37 07/19/20 03:25 07/20/20 03:20 Assessment/Plan Assessment/Plan Acute respiratory failure due to COVID-19 and ARDS -- Now improving -Fi02 requirments have improved from 90% to 45% -CXR appears improved this morning -D/C precedex -Decadron Remdesivir Convalescent plasma ordered- Pending -Influenza is negative -Lasix 40mg IV x 1 -Decrease IVF to 30cc/hr -Family requesting and arranging transfer to [facility]. knows doctor who i s helping to facilitate transfer to . -I called and gave medical update to . All questions answered to the best of my ability. I explained Harley is improving and is requiring less oxygen and respiratory support. would still like pt to transfer when possible. She has been in contact with doctor. Pneumonia Continue Zosyn Vapotherm and BiPAP as needed -Currently on BiPAP with Fi02 down to 45% -Trial back to Vapotherm Elevated DDIMER -- -Will treat as presumed PE/DVT -Increase to therapeutic dose lovenox secondary to DDIMer of >20 T1DM with hyperglycemia -Monitor -SSI -Home insulin pump is D/C'd Steroid-induced hyperglycemia Levemir Sliding scale insulin Elevated LFTs Chronic issue, improving US Liver without abnormalities Hepatitis panel negative Monitor while on Remdesivir Hypothyroid -Continue Synthroid HTN GERD Continue home meds HLD Held statin due to LFTs DVT Prophylaxis: Lovenox ANGELA RAIN DO Jul 20, 2020 05:44
[2020-07-20] MEDS ORDERED: FUROSEMIDE 40 MG/4 ML INJ (LASIX) IVP ONE (05:45)
[2020-07-20] MEDS: LEVOTHYROXINE 50 MCG (LEVOTHROID) TAB PO SCH (06:41)
--- NOTE | 2020-07-20 07:08 | Diagnostic Imaging Report ---
INDICATION: COVID. Comparison made with prior examination of 07/19/2020. FINDINGS: The heart size is normal. There is diffuse bilateral airspace disease. No pleural effusion or pneumothorax. Mediastinum is unremarkable IMPRESSION: Diffuse bilateral airspace disease. Some underlying central pulmonary venous congestion cannot be excluded. Dictated by: Dictated on workstation # [id number]
[2020-07-20] MEDS ORDERED: ENOXAPARIN 80 MG/0.8 ML (LOVENOX) SYR SC SCH (09:00)
[2020-07-20] MEDS: lisINopril 20 MG (PRINIVIL) TABLET PO SCH (09:15)
[2020-07-20] MEDS: dexAMETHasone 6 MG TAB (DECADRON) PO SCH (09:16)
[2020-07-20] MEDS: REMDESIVIR 100 MG/NS 250 ML IVPB IV SCH ×2 (09:17)
--- NOTE | 2020-07-20 09:43 | Pulmonary Progress Note ---
Standard Progress Note Progress Notes Date Seen by Provider: Jul 20, 2020 Time Seen by Provider: 09:35 PT did not tolerate Vapotherm at 100%. When on BiPAP he only requires 45%. I discussed with and RN in depth. She still wants pt transported to . She does not want pt intubated at this time. I did explain the risk vs benefits to . Will proceed with transport via helicopter. [facility] is able to do BIPAP during transport. Assessment & Plan Acute respiratory failure due to COVID-19 and ARDS -- -Fi02 requirments have improved from 90% to 45% While on BiPAP -PT does not tolerate Vapotherm. -CXR appears improved this morning -D/C precedex -Decadron Remdesivir Convalescent plasma ordered- Pending -Influenza is negative -Lasix 40mg IV x 1 -Decrease IVF to 30cc/hr -Family requesting and arranging transfer to [facility]. knows doctor who is helping to facilitate transfer to . -I called and gave medical update to . All questions answered to the best of my ability. I explained Harley is improving and is requiring less oxygen and respiratory support. would still like pt to transfer when possible. She has been in contact with doctor. Pneumonia Continue Zosyn Vapotherm and BiPAP as needed -Currently on BiPAP with Fi02 down to 45% -Trial back to Vapotherm Elevated DDIMER -- -Will treat as presumed PE/DVT -Increase to therapeutic dose lovenox secondary to DDIMer of >20 T1DM with hyperglycemia -Monitor -SSI -Home insulin pump is D/C'd Steroid-induced hyperglycemia Levemir Sliding scale insulin Elevated LFTs Chronic issue, improving US Liver without abnormalities Hepatitis panel negative Monitor while on Remdesivir Hypothyroid -Continue Synthroid HTN GERD Continue home meds HLD Held statin due to LFTs DVT Prophylaxis: Lovenox Critical Care: Critically Ill Patient Time spent with patient (mins): 60 ANGELA RAIN DO Jul 20, 2020 09:43
--- NOTE | 2020-07-20 09:59 | NUR ---
PT REPORT CALLED TO [facility]O PT TO BE TRANSPORTED BY [facility] TO ROOM [id number]. FAMILY REQUESTED TRANSFER.
--- NOTE | 2020-07-20 10:23 | NUR ---
Spa Coordinator spoke w. [facility] as they prepared to ship him to . She expressed no needs at the moment.
--- NOTE | 2020-07-20 11:17 | NUR ---
pt being transported to helicopter at this time.
== END 2020-07-20 11:10 | disposition short-term general hospital (02) | DRG 177 ==
LOC: EDUNIT# 17:25 → ER 17:26 → ICU 19:14 → EDLOC 19:14 → 4TH 07-16 14:21 → ICU 07-18 11:00
PROVIDERS: ADMIT Internal Medicine; ATTEND Internal Medicine
PROC: 5A09457 Assistance with Respiratory Ventilation, 24-96 Consecutive Hours, Continuous Positive Airway Pressure (ICD-10-PCS; principal; 2020-07-16)
PROC: XW033E5 Introduction of Remdesivir Anti-infective into Peripheral Vein, Percutaneous Approach, New Technology Group 5 (ICD-10-PCS; 2020-07-16)
DX: U07.1 COVID-19 (principal); J96.01 Acute respiratory failure with hypoxia; J12.89 Other viral pneumonia; I10 Essential (primary) hypertension; E11.65 Type 2 diabetes mellitus with hyperglycemia; Z79.4 Long term (current) use of insulin; K21.9 Gastro-esophageal reflux disease without esophagitis; E78.5 Hyperlipidemia, unspecified; E78.00 Pure hypercholesterolemia, unspecified; R79.89 Other specified abnormal findings of blood chemistry; Z73.0 Burn-out
CPT/HCPCS: 36415; 71045; 71275; 76705; 80053; 80074; 81000; 82550; 82553; 82805; 82962; 83605; 83615; 83735; 83874; 83880; 84100; 84145; 84484; 85007; 85025; 85027; 85379; 85610; 85652; 85730; 86141; 86900; 86901; 87040; 87081; 87804; 93005; 93041; 94640; 94660; 99291